=== PATIENT | female | born 1965 | race Caucasian/White ===

== ENCOUNTER 2016-11-21 06:40 | Day surgery (SDC) | payer OTHER ==
[~2016-11-21] VITALS: Ht 160 cm; Wt 81.0 kg
[2016-11-21] VITALS (11 sets, daily range): BP systolic 97–139; BP diastolic 50–72; PULSE 78–92; RESP 10–23; Ht 160 cm; Wt 81.0 kg
[2016-11-21] MEDS ORDERED: CEFAZOLIN 1 GM/50 ML (PMX) 50 ML IVPB ONE ×2 (08:30→10:19)
[2016-11-21] MEDS ORDERED: POLYMYXIN/BACITRACIN 1L IRRIG IRR ONE (08:30)
[2016-11-21] MEDS ORDERED: SOD CHLORIDE 0.9% 1,000 ML IV SCH (08:30)
[2016-11-21] MEDS ORDERED: MIDAZOLAM 1 MG/ML 2 ML INJ ONE (10:19)
[2016-11-21] MEDS ORDERED: FENTAnyl 50 MCG/ML VIAL ONE (10:19)
[2016-11-21] MEDS ORDERED: LIDOCAINE 2%/EPI 30 ML INJ ONE (10:19)
[2016-11-21] MEDS ORDERED: HEPARIN 1000 UNITS/ML 10 ML INJ ONE (10:19)
[2016-11-21] MEDS ORDERED: SOD CHLORIDE 0.9% 500 ML ONE (10:19)
--- NOTE | 2016-11-21 11:26 | RADRPT ---
PROCEDURE: FLUOROSCOPIC AND ULTRASONOGRAPHIC-GUIDED PLACEMENT OF LEFT CHEST PORT. CLINICAL INDICATION: History of right breast cancer. Venous access for chemotherapy. TECHNIQUE: INTRAPROCEDURE MEDICATIONS: PB antibiotic solution 40 cc applied topically. 1 gram Ancef intravenous ly, intra-op. IV Versed and Fentanyl per protocol. TECHNIQUE: Informed consent was obtained. The procedure, risks, benefits, complications and alternat brenda were explained to the patient. Risks including bleeding, infection, and pneumothorax were expl ained. The patient understood and was willing to proceed. A procedural pause was performed. The patient's name, date of , and procedure to be performed w ere verified. The central line was inserted with all elements of maximal sterile barrier technique. All of the fol lowing were used: head covering, facial mask, sterile gown, sterile gloves, a large sterile sheet, h and hygiene, and 2% chlorhexidine for cutaneous antisepsis. The left neck and anterior/superior chest wall were prepped and draped in usual sterile fashion. Limited sonography of the left neck was then performed. Noted is a patent left internal jugular vein . Following the local injection of 1% lidocaine, the left internal jugular vein was punctured under so nographic guidance with a 20-gauge needle through which a 0.018 inch floppy tip guidewire was advanc ed into the superior vena cava with fluoroscopic guidance. The tract was dilated to 5 Lao and t he wire was then replaced with a 0.035 in Glidewire. Serial dilatation was then performed and a 7 F rench peel away sheath was introduced. A site just inferior to the clavicle in the superior anterior left chest wall was localized. One per cent lidocaine was used as local anesthesia. A transverse 3 cm incision was made utilizing a 15 blad e scalpel. Utilizing blunt dissection a subcutaneous pocket was created inferior to the incision. Th e cavity was flushed with approximately 40 cc of PB antibiotic solution. The catheter was tunneled underneath the skin from the newly created pocket to the puncture site in the neck. The central line catheter was pulled through the tract. The catheter was then advanced thr ough the sheath until the tip was positioned in the right atrium. The peel-away sheath was removed. The catheter was flushed and clamped. The catheter was then connected to the 6.6 Lao Angiodynamics power port. The port was then placed into the pocket. Prior to closing the instrument and sponge count was verified and was correct. The subcutaneous tissue was closed with 3-0 Vicryl interrupted suture. The skin at the site of the pock et and in the neck was closed with 4-0 Vicryl suture in a running subcuticular technique. The port w as flushed with 2000 units of heparin in 2 cc utilizing a Lomeli needle. The needle was removed. A dr essing was applied. The patient tolerated procedure well. COMPARISON: None. FINDINGS: Ultrasound images were recorded and stored in the patient's medical record. Final radiographic images demonstrate the tip of the catheter in the upper right atrium. A total of 0.2 minutes of fluoroscopy time was used. The ultrasound images demonstrate the needle entering th e jugular vein. 5 images of the chest were obtained with image intensifier. IMPRESSION: 1. Successful ultrasonographic and fluoroscopic guided placement of left chest port. RPTAT: QQ .Del Lucio MD, MD Date Time Electronically viewed and signed by .Del Lucio MD, on 11/21/2016 11:26 .R/
--- NOTE | 2016-11-21 11:27 | RADRPT ---
PROCEDURE: Ultrasound guidance for placement of needle in left internal jugular vein. CLINICAL INDICATION: Venous access. TECHNIQUE: Prior to the procedure, informed consent was obtained. Risks including bleeding, infection, and pneu mothorax were explained to the patient. The patient understood and was willing to proceed. A procedu ral pause was performed. The patient's name, date of , and procedure to be performed were verif ied. The central line was inserted with all elements of maximal sterile barrier technique. All of th e following were used: head covering, facial mask, sterile gown, sterile gloves, a large sterile she et, hand hygiene, and 2% chlorhexidine for cutaneous antisepsis. The left neck and anterior/superi or chest wall was prepped and draped in usual sterile fashion. Limited sonography of the left neck was then performed. Noted is a patent left internal jugular vein . Ultrasound images were recorded and stored in the patient's medical record. Following the local injection of Xylocaine, the left internal jugular vein was punctured under sonog raphic guidance with a 20-gauge needle through which a 0.018 inch floppy tip guidewire was advanced into the superior vena cava. The patient tolerated the procedure well. The remainder of the proced ure was performed and dictated under separate cover. COMPARISON: None. FINDINGS: The ultrasound images demonstrate a patent left internal jugular vein. The subsequent images demons trate the needle entering the left internal jugular vein. IMPRESSION: 1. Ultrasound guidance for a needle placement in left internal jugular vein. RPTAT: QQ .Del Lucio MD, Date Time Electronically viewed and signed by .Del Lucio MD, MD on 11/21/2016 11:26 .R/
[2016-11-21] MEDS ORDERED: HYDROCODONE/APAP (5/325) TAB PO PRN (11:30)
== END 2016-11-21 14:18 | disposition home or self-care (01) ==
LOC: SDS 06:40 → RAD 06:40
PROVIDERS: ATTEND Internal Medicine Hematology & Oncology
DX: C50.911 Malignant neoplasm of unspecified site of right female breast (principal); I10 Essential (primary) hypertension; E66.9 Obesity, unspecified; Z68.31 Body mass index [BMI] 31.0-31.9, adult
CPT/HCPCS: 36561; 76942; C1788; J0690; J1644; J2250; J3010; J7040

== ENCOUNTER 2016-11-26 16:06 | Inpatient (IN) | payer OTHER, MEDICAID ==
[~2016-11-26] VITALS: Ht 160 cm; Wt 80.0 kg
[2016-11-26] MEDS ORDERED: HYDROmorphONE 1 MG/ML SYG IV STA ×2 (16:21→18:50)
[2016-11-26] MEDS ORDERED: SOD CHLORIDE 0.9% 1,000 ML IV STA (16:21)
[2016-11-26] MEDS ORDERED: ONDANSETRON 4 MG INJ IV STA ×2 (16:21→18:50)
--- NOTE | 2016-11-26 17:03 | ERA ---
ER Documentation Chief Complaint Date/Time DATE: 11/26/16 TIME: 16:37 Chief Complaint CODE GREEN: ABD/CP X 1 DAY THAT STARTED THIS MORNING HPI This is a 51-year-old female with a known history of right breast carcinoma who began chemotherapy November 15, 2016, 10 days prior to arrival. The patient had a left chest wall port placed for her chemotherapy 6 days prior to arrival. The patient 1 hour prior to arrival had eaten chicken and vegetables. She stated 10 minutes after she developed a sudden onset of severe abdominal cramping and nausea. She began to feel bilateral chest wall tenderness scribed is a dull achy sensation with pleuritic pain and no pressure in the left chest wall. She denied any radiation of the pain to the neck arm back or jaw. She states she has had no fevers or shaking or chills. There is no alleviating or exacerbating factors to the pain. As stated above she felt nauseous but denied any hemoptysis hematemesis or melanotic stools. She felt short of breath at rest and attempted to get out of the car in the parking lot but was unable to do so due to the severe shortness of breath and therefore a code green was called. She presented to the emergency department driven by her brother. She states that the abdominal cramping has persisted and there is no lower back pain. She also states that after the chemotherapy she had multiple episodes of loose watery stool which have resolved but several days ago developed frequency urgency and dysuria. She did not take any analgesic medication prior to arrival. No coughing choking or gagging episode that occurred while eating the chicken and vegetables. ROS All systems reviewed and are negative except as per history of present illness. Medications Home Meds No Active Prescriptions or Reported Meds Allergies Allergies: Coded Allergies: No Known Allergy (Unverified , 11/21/16) PMhx/Soc History of Surgery: Yes (endometriosis) Anesthesia Reaction: No Hx Neurological Disorder: No Hx Respiratory Disorders: No Hx Cardiac Disorders: Yes (htn) Hx Psychiatric Problems: No Hx Miscellaneous Medical Probl: Yes (brest ca) Hx Alcohol Use: No Hx Substance Use: No Hx Tobacco Use: No Smoking Status: Never smoker Physical Exam Vitals Vital Signs Date Time Temp Pulse Resp B/P Pulse Ox O2 Delivery O2 Flow Rate FiO2 11/26/16 21:46 97.8 80 12 128/79 99 Room Air 11/26/16 20:17 97.8 87 14 125/77 96 Room Air 11/26/16 18:30 97.8 85 19 131/79 98 Room Air 11/26/16 16:22 98.0 89 18 137/99 99 Physical Exam Constitutional:Well-developed. Well-nourished. She appeared to be in a significant amount of discomfort and tearful HEENT:Normocephalic. Atraumatic.Pupils were equal round reactive to light. Moist mucous membranes.No tonsillar exudates. Neck: No nuchal rigidity. No lymphadenopathy. No posterior cervical spine tenderness or step-offs. Respiratory: Not using accessory muscles of respiration.Lungs were clear to auscultation bilaterally. No rhonchi. No rales. No wheezing. Cardiovascular: Regular rate regular rhythm.No murmurs. No rubs were appreciated.S1, S2 normal. Distal pulses are palpable 2+ bilaterally. Chest wall port in place and no surrounding ecchymosis fluctuance or induration with bilateral chest wall tenderness. GI: Abdomen was soft. Tenderness in the bilateral left and right lower quadrant with no tenderness over McBurney's point. Psoas sign negative. Obturator sign negative peer Non Distended. No pulsatile abdominal masses or bruits. No rebound. No guarding. Bowel sounds were present and normal. Muscle skeletal: Full range of motion of both the upper and lower extremities bilaterally.Normal muscle tone.No assymetrical calf tenderness or swelling. Skin: No petechia, no purpura. No lesions on the palms or the soles of the feet. No maculopapular rash. NEURO: Patient was alert, awake, orientated x3.No facial droop. Gait observed and normal with no ataxia.Speech had regular rate and rhythm. No focal neurological deficits. Result Diagram: 11/26/16 1700 11/26/16 1700 Results 24 hrs Laboratory Tests Test 11/26/16 17:00 11/26/16 18:30 White Blood Count 12.210^3/ul Red Blood Count 4.5710^6/ul Hemoglobin 12.2g/dl Hematocrit 37.9% Mean Corpuscular Volume 82.9fl Mean Corpuscular Hemoglobin 26.7pg Mean Corpuscular Hemoglobin Concent 32.2g/dl Red Cell Distribution Width 12.3% Platelet Count 16543^3/UL Mean Platelet Volume 10.4fl Neutrophils % % Segmented Neutrophils % (Manual) 41% Band Neutrophils % (Manual) 12% Lymphocytes % % Lymphocytes % (Manual) 34% Reactive Lymphocytes % (Manual) 1% Monocytes % % Monocytes % (Manual) 12% Eosinophils % % Basophils % % Nucleated Red Blood Cells % 0.7/100WBC Neutrophils # 10^3/ul Neutrophils # (Manual) 5.210^3/ul Band Neutrophils # 1.410^3/ul Absolute Lymphocytes (Manual) 4.110^3/ul Lymphocytes # 4.110^3/ul Reactive Lymphocytes # 0.110^3/ul Monocytes # 1.510^3/ul Absolute Monocytes (Manual) 1.410^3/ul Eosinophils # 10^3/ul Basophils # 10^3/ul Nucleated Red Blood Cells # 10^3/ul Prothrombin Time 12.4Sec Prothrombin Time Ratio 1.0 INR International Normalized Ratio 0.92 Activated Partial Thromboplast Time 26.8Sec Sodium Level 142mmol/L Potassium Level 3.8mmol/L Chloride Level 106mmol/L Carbon Dioxide Level 24mmol/L Anion Gap 16 Blood Urea Nitrogen 8mg/dl Creatinine 0.80mg/dl Glucose Level 126mg/dl Calcium Level 9.5mg/dl Total Bilirubin 0.1mg/dl Direct Bilirubin 0.00mg/dl Indirect Bilirubin 0.1mg/dl Aspartate Amino Transf (AST/SGOT) 78IU/L Alanine Aminotransferase (ALT/SGPT) 82IU/L Alkaline Phosphatase 149IU/L Troponin I < 0.012ng/ml Total Protein 7.3g/dl Albumin 4.0g/dl Globulin 3.30g/dl Albumin/Globulin Ratio 1.21 Amylase Level 85U/L Lipase 475U/L Urine Color YELLOW Urine Clarity SLIGHTLY CLOUDY Urine pH 7.0 Urine Specific Linton 1.010 Urine Ketones NEGATIVEmg/dL Urine Nitrite NEGATIVEmg/dL Urine Bilirubin NEGATIVEmg/dL Urine Urobilinogen 1+mg/dL Urine Leukocyte Esterase 1+Johnnie/ul Urine Microscopic RBC 2/HPF Urine Microscopic WBC 40/HPF Urine Bacteria FEW/HPF Urine Mucus FEW/HPF Urine Hemoglobin NEGATIVEmg/dL Urine Glucose NEGATIVEmg/dL Urine Total Protein NEGATIVEmg/dl Current Medications Medications (Trade) Dose Ordered Sig/Ramon Route PRN Reason Start Time Stop Time Status Last Admin Dose Admin Sodium Chloride (NS) 1,000 ml @ 1,000 mls/hr Q1H STAT IV 11/26/16 16:21 11/26/16 17:20 DC 11/26/16 16:39 Hydromorphone HCl (Dilaudid) 1 mg ONCE STAT IV 11/26/16 16:21 11/26/16 16:27 DC 11/26/16 16:39 Ondansetron HCl (Zofran Inj) 4 mg ONCE STAT IV 11/26/16 16:21 11/26/16 16:27 DC 11/26/16 16:40 IV Flush 10 ml 10 ml STK-MED ONCE .ROUTE 11/26/16 18:44 11/26/16 18:45 DC 11/26/16 19:00 Sodium Chloride 100 ml @ ud STK-MED ONCE .ROUTE 11/26/16 18:44 11/26/16 18:45 DC 11/26/16 19:00 Iohexol (Omnipaque) 100 ml @ ud STK-MED ONCE .ROUTE 11/26/16 18:44 11/26/16 18:45 DC 11/26/16 19:00 Iohexol (Omnipaque 350mg/ ml) 50 ml STK-MED ONCE .ROUTE 11/26/16 18:44 11/26/16 18:45 DC 11/26/16 19:01 Hydromorphone HCl (Dilaudid) 1 mg ONCE STAT IV 11/26/16 18:50 11/26/16 18:54 DC 11/26/16 20:00 Ondansetron HCl 4 mg 4 mg ONCE STAT IV 11/26/16 18:50 11/26/16 18:54 DC 11/26/16 20:00 Ceftriaxone Sodium (Rocephin) 50 ml @ 100 mls/hr ONCE ONCE IVPB 11/26/16 21:30 11/26/16 21:59 Procedures/MDM This patient presented to the emergency department with abdominal pain, chest pain and shortness of breath on chemotherapy and was seen and evaluated by myself. My differential diagnosis included but was not limited to abdominal aortic aneurysm, appendicitis, pancreatitis, perforated peptic ulcer, perforated viscus, Boerhaaves syndrome or visceral pain such as diverticulitis , DKA, esophagitis, hepatitis or bowel obstruction. The patient was placed on a personnel monitor, continuous pulse oximetry, and IV access was established by nursing staff. The patient was given IV Dilaudid and Zofran for analgesia control. 12 Lead EKG tracing ordered and reviewed by myself showed: Normal sinus rhythm of 95 bpm and no arrhythmia. IA interval normal. QRS duration normal. No ST segment elevation No ST segment depression. No changes consistent with acute ischemia. He was also hypoxic with shortness of breath. My differential diagnosis included but was not limited to upper airway obstruction, CHF, pulmonary embolism, cardiac ischemia, pneumonia, pneumothorax, anemia, drug overdose, pulmonary edema, COPD or asthma. He was placed on low-flow supplemental oxygen via nasal cannula with improvement of her pulse ox. I did feel is necessary to obtain a CT scan of the chest in order to rule out pulmonary embolism. This was reviewed by the radiologist and indicated the following: Evidence of a pulmonary embolism. No evidence of small or large bowel obstruction. The patient did have urinary tract infection. Given that the patient is a medial compromise on chemotherapy I did feel the patient required admission for IV antibiotics. Urine cultures and blood cultures obtained and the patient was started on IV ceftriaxone. The patient's primary care physician is Dr. Florez and therefore is admitted to Dr. Reeves who is taking call for Dr. Florez. The patient's printed circuit boards contact printer oncologist is Dr. Avina. Patient at this time was stable to go to the surgical floor. She had no evidence of myocardial ischemia and I did feel the patient's chest discomfort was likely muscle skeletal in origin. Departure Diagnosis: Primary Impression: Pleuritic chest pain Additional Impressions: Urinary tract infection Qualified Code: N30.00 - Acute cystitis without hematuria Carcinoma of breast Qualified Code: C50.911 - Carcinoma of right female breast, unspecified estrogen receptor status, unspecified site of breast Condition: Serious GEORGIANA SALAZAR Nov 26, 2016 17:03
[2016-11-26 17:05] LABS: ABNORMAL IP MESSAGE 1; HEMATOCRIT 37.9 % (37.0-47.0); HEMOGLOBIN 12.2 g/dl (12.0-16.0); MEAN CORPUSCULAR HEMOGLOBIN 26.7 pg (29.0-33.0); MEAN CORPUSCULAR HGB CONC 32.2 g/dl (32.0-37.0); MEAN CORPUSCULAR VOLUME 82.9 fl (82.0-101.0); MEAN PLATELET VOLUME 10.4 fl (7.4-10.4); NUCLEATED RED BLOOD CELLS% 0.7 /100WBC (0.0-0.0); PLATELET COUNT 395 10^3/UL (140-415); RED BLOOD COUNT 4.57 10^6/ul (4.20-5.40); RED CELL DISTRIBUTION WIDTH 12.3 % (11.5-14.5); WHITE BLOOD COUNT 12.2 10^3/ul (4.8-10.8)
[2016-11-26 17:08] LABS: POSITIVE DIFF @See below
[2016-11-26 17:22] LABS: INR 0.92; PARTIAL THROMBOPLASTIN TIME 26.8 Sec (25.0-35.0); PROTIME 12.4 Sec (12.2-14.2)
[2016-11-26 17:23] LABS: ALANINE AMINOTRANSFERASE 82 IU/L (13-69); ALBUMIN/GLOBULIN RATIO 1.21; ALKALINE PHOSPHATASE 149 IU/L (42-121); AMYLASE 85 U/L (11-123); ANION GAP 16 (8-16); ASPARTATE AMINO TRANSFERASE 78 IU/L (15-46); BILIRUBIN,INDIRECT 0.1 mg/dl (0-1.1); BILIRUBIN,TOTAL 0.1 mg/dl (0.2-1.3); BLOOD UREA NITROGEN 8 mg/dl (7-20); CALCIUM 9.5 mg/dl (8.4-10.2); CARBON DIOXIDE 24 mmol/L (21-31); CHLORIDE 106 mmol/L (97-110); GLUCOSE 126 mg/dl (70-220); POTASSIUM 3.8 mmol/L (3.5-5.1); SODIUM 142 mmol/L (135-144); TOTAL PROTEIN 7.3 g/dl (6.1-8.1)
[2016-11-26 17:38] LABS: LYMPHOCYTES # 4.1 10^3/ul (0.8-2.9); MONOCYTE # 1.5 10^3/ul (0.3-0.9); MONOCYTES % (M) 12 % (0-11); REACTIVE LYMPHOCYTES% (M) 1 % (0-0); TROPONIN-I < 0.012 ng/ml (0.00-0.12)
[2016-11-26] MEDS ORDERED: SOD CHLORIDE 0.9% 100 ML ONE (18:44)
[2016-11-26] MEDS ORDERED: IOHEXOL 100 ML ONE (18:44)
[2016-11-26] MEDS ORDERED: IOHEXOL 350MG/ML 50 ML BTL ONE (18:44)
[2016-11-26 19:40] LABS: ADD UMIC YES; UR ASCORBIC ACID NEGATIVE (NEGATIVE); UR BACTERIA FEW /HPF (NONE SEEN); UR BILIRUBIN (Dip) NEGATIVE (NEGATIVE); UR BLOOD (Dip) NEGATIVE (NEGATIVE); UR CLARITY SLIGHTLY CLOUDY (CLEAR); UR COLOR YELLOW (YELLOW); UR GLUCOSE (Dip) NEGATIVE (NEGATIVE); UR KETONES (Dip) NEGATIVE (NEGATIVE); UR LEUKOCYTE ESTERASE (Dip) 1+ Leu/ul (NEGATIVE); UR MUCUS FEW /HPF (NONE SEEN); UR NITRITE (Dip) NEGATIVE (NEGATIVE); UR RBC 2 /HPF (0-5); UR TOTAL PROTEIN (Dip) NEGATIVE (NEGATIVE); UR UROBILINOGEN (Dip) 1+ mg/dL (NEGATIVE)
--- NOTE | 2016-11-26 20:06 | RADRPT ---
PROCEDURE: CTA Chest and pulmonary angiogram. CT abdomen and pelvis with contrast. CLINICAL INDICATION: Shortness of breath and abdominal pain. TECHNIQUE: CT scan of the chest and CT pulmonary angiogram and CT abdomen and pelvis were performe d on a multidetector high-resolution CT scanner. High-resolution thin slice coronal and sagittal im aging was obtained from the axial source images. 3-D volumetric rendered post processing of the pul monary arteries was performed as well. The patient was examined following the uncomplicated intrave nous administration of 125 cc of Omnipaque-350. The images were reviewed on a PACS workstation. The total exam CTDI equals 21.12, 42.25, 18.23, and 13.93 and the total exam DLP equals 1557.01 mGy-cm. One or more of the following dose reduction techniques were used: Automated exposure control. Adjustment of the mA and/or kV according to patient size. Use of iterative reconstruction technique. COMPARISON: No prior studies are available for comparison. FINDINGS: CT chest: The lungs are remarkable for patchy atelectasis/pleuroparenchymal scarring in the lung bases. No foc al opacification, effusion, pneumothorax, edema, or nodules are seen. The central tracheobronchial tree is clear. The mediastinum is unremarkable without evidence for mass or lymphadenopathy. There is a left IJ audra st port with tip in the right atrium. The vascular structures of the mediastinum are normal in cour se and caliber. The heart size is normal without pericardial thickening or effusion. The axillary, subpectoral, and supraclavicular regions are unremarkable. Imaging obtained through the upper abdomen is equally unremarkable. The adrenal glands are symmetri roverto normal. The surrounding chest wall is unremarkable. The osseous structures are remarkable fo r degenerative spondylosis of the spine. CT pulmonary angiogram: No thrombus, clot, filling defect, or pulmonary web is identified. The pulmonary arteries are joy l in caliber and morphology. No filling defect is present to suggest pulmonary embolism. There is no evidence for pulmonary arterial hypertension. CT abdomen and pelvis: The liver is normal in size and density. There is no suspicious focal liver mass. The spleen is nor mal in size. The gallbladder is unremarkable. Both kidneys enhance symmetrically. There is no urolit hiasis. There is no renal mass. The adrenal glands are unremarkable. The pancreas is unremarkable. T he stomach, and bowel appear unremarkable. The patient is status post hysterectomy. There is no retr operitoneal or pelvic lymphadenopathy. The abdominal aorta is normal in caliber with scattered aorto iliac atherosclerosis. The visualized osseous structures are unremarkable. There is no lytic or maría tic osseous lesions. IMPRESSION: CT pulmonary angio: 1. No evidence for major pulmonary embolism. The evaluation of the lower lobe pulmonary artery bran ches is very limited due to breathing artifacts. 2. Patchy bibasilar atelectasis/linear scarring. Abdomen and pelvis: 1. No mass, lymphadenopathy or acute infiltrates. 2. Scattered aortoiliac atherosclerosis. RPTAT: HHO .Zay Pierce MD, MD Date Time Electronically viewed and signed by .Zay Pierce MD, on 11/26/2016 20:05 .O/
[2016-11-26] MEDS ORDERED: CEFTRIAXONE 1 GM/50 ML (PMX) 50 ML IVPB ONE (21:30)
[2016-11-26 21:46] VITALS: TEMP 97.8
[2016-11-26 22:05] VITALS: BP 123/59; PULSE 89; RESP 18
[2016-11-26 22:10] VITALS: Ht 160 cm; Wt 80.0 kg
[2016-11-26] MEDS ORDERED: NACL 0.9% 3 ML SYG IV SCH (22:30)
[2016-11-26] MEDS ORDERED: ONDANSETRON 4 MG INJ IV PRN (22:30)
[2016-11-26] MEDS ORDERED: HYDROmorphONE 0.5 MG/0.5 ML SYG IV PRN (22:30)
[2016-11-26] MEDS ORDERED: CEFTRIAXONE 1 GM/50 ML (PMX) 50 ML IVPB SCH (22:30)
[2016-11-26] MEDS: SOD CHLORIDE 0.9% 1,000 ML IV SCH (23:02)
[2016-11-27 05:55] LABS: ABNORMAL IP MESSAGE 1; HEMATOCRIT 31.9 % (37.0-47.0); HEMOGLOBIN 10.2 g/dl (12.0-16.0); MEAN CORPUSCULAR HEMOGLOBIN 27.1 pg (29.0-33.0); MEAN CORPUSCULAR VOLUME 84.8 fl (82.0-101.0); MEAN PLATELET VOLUME 10.2 fl (7.4-10.4); NUCLEATED RED BLOOD CELLS% 0.3 /100WBC (0.0-0.0); PLATELET COUNT 319 10^3/UL (140-415); RED BLOOD COUNT 3.76 10^6/ul (4.20-5.40); RED CELL DISTRIBUTION WIDTH 12.5 % (11.5-14.5); WHITE BLOOD COUNT 10.4 10^3/ul (4.8-10.8)
[2016-11-27 06:12] LABS: POSITIVE DIFF @See below
[2016-11-27 06:36] LABS: POTASSIUM 3.6 mmol/L (3.5-5.1)
[2016-11-27 06:37] LABS: ALBUMIN 3.1 g/dl (3.3-4.9); ALBUMIN/GLOBULIN RATIO 0.88; BILIRUBIN,INDIRECT 0.1 mg/dl (0-1.1); BILIRUBIN,TOTAL 0.1 mg/dl (0.2-1.3); CALCIUM 8.7 mg/dl (8.4-10.2); CREATININE 0.87 mg/dl (0.44-1.00); TOTAL PROTEIN 6.6 g/dl (6.1-8.1)
[2016-11-27 07:28] VITALS: BP 132/70; RESP 19
[2016-11-27 07:55] LABS: ANISOCYTOSIS 2+ (0-0); GIANT THROMBO% (M) 1 % (0-0); MICROCYTOSIS 2+ (0-0); MONOCYTES % (M) 14 % (0-11); MYELOCYTES % (M) 5 % (0-0); PLATELET ESTIMATE NORMAL; POLYCHROMASIA 3+ (0-0)
[2016-11-27] MEDS: SOD CHLORIDE 0.9% 1,000 ML IV SCH ×2 (08:16→15:19)
[2016-11-27] MEDS: ENOXAPARIN 30 MG/0.3 ML SYG SC SCH (08:24)
[2016-11-27] MEDS ORDERED: FAMOTIDINE 20 MG INJ IV SCH (09:00)
--- NOTE | 2016-11-27 14:01 | HP ---
DATE OF ADMISSION: 11/26/2016 CHIEF COMPLAINT: Abdominal and chest pain and generalized weakness. HISTORY OF PRESENT ILLNESS: The patient is a 51-year-old female with past medical history positive for hypertension and right breast carcinoma. Patient is followed with Dr. Andujar in oncology co nsultation and patient started chemotherapy first out of 6 cycles on 11/15/2016. However, patient d eveloped onset of severe abdominal pain and nausea as well as chest pain. The patient was brought t o the emergency room by her brother. On evaluation in the emergency room, the patient underwent a C TA which was negative for any evidence of pulmonary embolism. The patient's urinalysis was positive for urinary tract infection and after urine and blood culture collected, the patient was started on Rocephin and admitted for further evaluation and management. During the examination, patient denie s any chest pain, denies any abdominal pain. However, patient stated that she has diarrhea right af ter chemotherapy. Denies any diarrhea recently. The patient will be admitted for further evaluatio n and management. Also, the patient's troponin was negative in the emergency room. However, patien t has transaminitis and elevated lipase. The patient will be admitted to medical/surgical floor for further evaluation and management. PAST MEDICAL HISTORY: Per HPI. PAST SURGICAL HISTORY: Status post hysterectomy 4 years ago, status post left chest Port-A-Cath hadley cement and status post right breast biopsies x2. FAMILY HISTORY: Negative for any history of ovarian or breast cancer. SOCIAL HISTORY: The patient lives at home. Patient denies any tobacco use, denies any alcohol use, denies any illicit drug use. ALLERGIES: NO KNOWN ALLERGIES. HOME MEDICATIONS: No active prescriptions. REVIEW OF SYSTEMS: A 12-point review of systems is negative unless mentioned in the HPI. PHYSICAL ASSESSMENT: GENERAL: Well-developed, obese female in no acute distress. VITAL SIGNS: Temperature is 98.0, pulse is 73, respiratory rate 19, blood pressure is 132/70, oxyge n saturation 98% on room air. HEENT: Head is atraumatic, normocephalic. Pupils equal, round, reactive to light and accommodation . Oral mucosa is pink and moist. NECK: Supple, no cervical lymphadenopathy, no thyromegaly. CHEST: Lungs clear bilaterally. There is no rhonchi, wheezes, rales noted. CARDIOVASCULAR: Normal S1, S2. No murmurs, gallops, clicks, rubs noted. The patient has a left ch est Perm-A-Cath with intact surgical incision. Abdomen is round, soft, nondistended, nontender. Ihsan wel sounds present. There is no guarding, no rebound tenderness. EXTREMITIES: No edema, clubbing, cyanosis. Pulses equal bilaterally 2+. SKIN: There is no rash, petechiae noted. NEUROLOGIC: Patient is awake, alert and oriented x4. No focal deficits noted. Motor strength 5/5 in all extremities. LABORATORY DATA: On admission, CBC: White blood cells 12.2, hemoglobin 12.2, hematocrit 37.9, plat elets 395. Chemistry: Sodium is 142, potassium 3.8, chloride 106, carbon dioxide 24, anion gap 16, BUN is 8, creatinine 0.8, glucose 126, AST 78, ALT is 82, alkaline phosphatase 149. Troponin less than 0.012. Amylase is 85, lipase of 475. Urinalysis is positive for leukocyte esterase and dysuri a. ASSESSMENT AND PLAN: 1. Urinary tract infection. Continue Rocephin. Follow up on urine culture. Possible sepsis with leukocytosis and shortness of breath. 2. Pulmonary embolism ruled out. 3. Right breast carcinoma, status post chemotherapy on 11/15/2016, left chest Port-A-Cath. 4. Transaminitis. 5. I am going to continue Zofran p.r.n. for nausea and Dilaudid p.r.n. for pain. Advance diet as p atient tolerates. Continue Lovenox for deep venous thrombosis prophylaxis and Pepcid for peptic ulc er disease prophylaxis. Further recommendations based on clinical course. Plan of care discussed with Dr. Diggs. Dictated By: BENEDICT TSAI [employer] for MARCELINO DIGGS MD SR/NTS Conf#: [id number] DID#: [id number]
[2016-11-27 14:41] LABS: HAAIG REFLEX REFLEX FILED
[2016-11-27 14:54] VITALS: BP 121/61; RESP 19
--- NOTE | 2016-11-27 16:02 | CONS ---
DATE OF ADMISSION: 11/26/2016 DATE OF CONSULTATION: 11/27/2016 TYPE OF CONSULTATION: Gastroenterology. Dear Dr. Degroot and Dr. Diggs: Thank you for asking me to see Ms. Pelayo in GI consultation. HISTORY OF PRESENT ILLNESS: The patient, as you know, is a 51-year-old female who was diag nosed to have breast cancer recently and she received her first chemotherapy the beginning of . Now, she has developed epigastric pain after she ate lunch yesterday and because of that she cam e to the emergency room. She had a very minimal shortness of breath and she had a pulmonary angiogr am done which apparently was unremarkable. She has an abnormal liver functions, hence the GI consul tation has been requested. She does not drink alcohol. She does not smoke. MEDICATIONS: Prior to the admission essentially includes none. In the hospital, she is on 1. Ceftriaxone. 2. Pepcid. 3. Lovenox. 4. Zofran. 5. Dilaudid. No prior history of liver disease. IMAGING STUDIES: Shows evidence of having a CAT scan of the chest and abdomen which revealed no pul monary embolus, but no evidence of abnormality in the liver, except scattered aortic atherosclerosis . No history of contact with anybody having hepatitis. PAST MEDICAL HISTORY: Hysterectomy. PHYSICAL EXAMINATION: GENERAL: The patient is a 51-year-old female who at this time is alert, mildly obese. VITAL SIGNS: She is afebrile. Blood pressure is 132/70, pulse is 73, temperature 98.0. No jaundic e. CARDIOVASCULAR: Normal heart sounds. RESPIRATORY: Normal breath sounds. ABDOMEN: Showed evidence of a soft abdomen with no palpable masses, no tenderness, no distention. The electrocardiogram shows sinus rhythm. Cannot rule out anterior infarction. LABORATORY WORKUP: Yesterday AST 78, today is 53. Yesterday, ALT is 82, today is 90, alkaline phos phatase is 149 and today 132. The bilirubin 0.1. The WBC count is 10,400 which came down from 12,2 00. CLINICAL IMPRESSION: The patient presenting with history of epigastric pain, abnormal liver functio ns, acute cholecystitis is a possibility, but no evidence of gallstones noted on the CT of the abdom en, no evidence of any acute process noted on the CT of the abdomen. The imaging obtained through the upper abdomen reported as unremarkable. Liver is unremarkable. Ga llbladder is unremarkable. CLINICAL IMPRESSION: It is possible we may be dealing with the fact that patient may have passed ga llstones. No evidence of pancreatitis. I doubt if we are dealing with any obstructive process aleyda g on in the hepatobiliary pancreatic system from the abnormal liver function standpoint. However, m etastatic disease in the cannot be excluded, although it is not noticed on the CT scan. PLAN: 1. Recommend magnetic resonance cholangiopancreatography and if there is any indication for endosco pic retrograde cholangiopancreatography that will be considered. 2. Also, recommend hepatitis panel. Once again, doctor, thank you for this consultation. Dictated By: KEITH DUFF MD NC/NTS Conf#: [id number] DID#: [id number] CC: MARCELINO DIGGS MD; SASHA DEGROOT MD;*EndCC*
[2016-11-27 16:11] LABS: HEPATITIS B CORE ANTIBODY NEGATIVE (NEGATIVE)
[2016-11-27 19:24] VITALS: BP 132/64; RESP 16
[2016-11-27] MEDS: FAMOTIDINE 20 MG TAB PO SCH (20:41)
[2016-11-27] MEDS: CEFTRIAXONE 1 GM/50 ML (PMX) 50 ML IVPB SCH (20:42)
--- NOTE | 2016-11-27 20:42 | RADRPT ---
PROCEDURE: MRI abdomen without contrast CLINICAL INDICATION: Abdominal pain TECHNIQUE: An MRI of the abdomen was performed utilizing a high field MRI scanner with the following pulsed seq uences: Axial T2 fast spin-echo, axial T2 non-fat saturation fast spin-echo, axial T1 gradient echo in-phase and opposed-phase. Noncontrast fat sat T1-weighted images were also obtained. Coronal T2 and fat-saturated T2-weighted images were also obtained. Diffusion-weighted images and ADC maps were obtained. COMPARISON: Not FINDINGS: Lack of IV contrast limits evaluation for enhancing masses. There is uniform signal intensity of the liver with no evidence of focal lesion to suggest a mass. F low void is present within the portal vein. The gallbladder is unremarkable without evidence of sto aida, or surrounding inflammation. There is no intrahepatic or extrahepatic biliary ductal dilatation . There is a normal appearance the spleen without enlargement. Adrenal glands are unremarkable without mass or signal abnormality. The kidneys are symmetric without hydronephrosis. The pancreas is unrem arkable without inflammation. There is a mildly fecal filled colon to There is no evidence of bowel obstruction or mesenteric infl ammatory changes. There is no free fluid or lymphadenopathy. Aortic atherosclerotic plaque is partia lly visualized. Degenerative changes seen in the lumbar spine. IMPRESSION: No evidence of mass or inflammation within the abdomen. Mildly fecal filled colon. Atherosclerotic disease is visualized. RPTAT: AA .Ishmael Denson MD, MD Date Time Electronically viewed and signed by .Ishmael Denson MD, MD on 11/27/2016 20:41 .J/
[2016-11-28] MEDS: SOD CHLORIDE 0.9% 1,000 ML IV SCH ×3 (01:13→21:45)
[2016-11-28] MEDS: LOSARTAN 25 MG TAB PO SCH ×2 (02:00→07:57)
[2016-11-28] MEDS: AMLODIPINE 5 MG TAB PO SCH ×2 (02:00→07:58)
[2016-11-28 02:10] VITALS: BP 161/85; RESP 16
[2016-11-28] MEDS: ACETAMINOPHEN 325 MG TAB PO PRN ×2 (03:12→16:42)
[2016-11-28 06:42] VITALS: BP 120/74; PULSE 74; RESP 18
[2016-11-28 07:00] VITALS: BP 154/79; RESP 18
[2016-11-28 08:36] LABS: ABNORMAL IP MESSAGE 1; HEMATOCRIT 32.7 % (37.0-47.0); HEMOGLOBIN 10.5 g/dl (12.0-16.0); MEAN CORPUSCULAR HEMOGLOBIN 27.1 pg (29.0-33.0); MEAN CORPUSCULAR HGB CONC 32.1 g/dl (32.0-37.0); MEAN CORPUSCULAR VOLUME 84.3 fl (82.0-101.0); NUCLEATED RED BLOOD CELLS% 0.3 /100WBC (0.0-0.0); PLATELET COUNT 307 10^3/UL (140-415); RED BLOOD COUNT 3.88 10^6/ul (4.20-5.40); RED CELL DISTRIBUTION WIDTH 12.4 % (11.5-14.5); WHITE BLOOD COUNT 9.5 10^3/ul (4.8-10.8)
[2016-11-28] MEDS: FAMOTIDINE 20 MG TAB PO SCH ×2 (08:43→21:05)
[2016-11-28] MEDS: ENOXAPARIN 30 MG/0.3 ML SYG SC SCH (08:46)
[2016-11-28 08:52] LABS: POSITIVE DIFF @See below
[2016-11-28 08:59] LABS: ALBUMIN 3.5 g/dl (3.3-4.9); ALBUMIN/GLOBULIN RATIO 1.09; CALCIUM 8.5 mg/dl (8.4-10.2); CREATININE 0.77 mg/dl (0.44-1.00); POTASSIUM 3.6 mmol/L (3.5-5.1); TOTAL PROTEIN 6.7 g/dl (6.1-8.1)
[2016-11-28 10:12] LABS: ANISOCYTOSIS 1+ (0-0); MICROCYTOSIS 1+ (0-0); MONOCYTES % (M) 8 % (0-11); PLATELET ESTIMATE NORMAL; REACTIVE LYMPHOCYTES% (M) 2 % (0-0)
--- NOTE | 2016-11-28 13:25 | PN ---
Date/Time of Note Date/Time of Note DATE: 11/28/16 TIME: 13:24 Assessment/Plan VTE Prophylaxis VTE Prophylaxis Intervention: SCD's Lines/Catheters IV [facility] Assessment/Plan Chief Complaint/Hosp Course Patient denies abdominal pain denies shortness of breath. Problems: Assessment/Plan - Urinary tract infection. Continue Rocephin. Follow up on urine culture. - Possible sepsis with leukocytosis and shortness of breath. - Pulmonary embolism ruled out. - Right breast carcinoma, status post chemotherapy on 11/15/2016, left chest Port-A-Cath. - Transaminitis. Dr. Rivera is following in gastroenterology consultation Further recommendations based on clinical course. Plan of care discussed with Dr. Florez. Exam/Review of Systems Vital Signs Vitals Vital Signs Date Time Temp Pulse Resp B/P Pulse Ox O2 Delivery O2 Flow Rate FiO2 11/28/16 07:00 98.6 71 18 154/79 96 11/28/16 06:42 Room Air Intake and Output 11/27/16 11/27/16 11/28/16 15:00 23:00 07:00 Intake Total 1460 ml 1400 ml Balance 1460 ml 1400 ml Exam Constitutional: alert Head: normocephalic Neck: supple Respiratory: normal air movement Cardiovascular: nl pulses Gastrointestinal: non-tender, soft Extremities: normal pulses Results Result Diagram: 11/28/16 0808 11/28/16 0808 Results 24 hrs Laboratory Tests Test 11/27/16 14:27 11/28/16 08:08 Hepatitis B Surface Antigen NEGATIVE Hepatitis B Core Total Antibody NEGATIVE Hepatitis C Antibody NEGATIVE White Blood Count 9.5 Red Blood Count 3.88 L Hemoglobin 10.5 L Hematocrit 32.7 L Mean Corpuscular Volume 84.3 Mean Corpuscular Hemoglobin 27.1 L Mean Corpuscular Hemoglobin Concent 32.1 Red Cell Distribution Width 12.4 Platelet Count 307 Mean Platelet Volume 10.0 Neutrophils % Segmented Neutrophils % (Manual) 59 Band Neutrophils % (Manual) 16 H Lymphocytes % Lymphocytes % (Manual) 15 Reactive Lymphocytes % (Manual) 2 H Monocytes % Monocytes % (Manual) 8 Eosinophils % Basophils % Nucleated Red Blood Cells % 0.3 H Neutrophils # Neutrophils # (Manual) 5.7 Band Neutrophils # 1.5 H Absolute Lymphocytes (Manual) 1.4 Lymphocytes # Reactive Lymphocytes # 0.1 H Monocytes # Absolute Monocytes (Manual) 0.7 Eosinophils # Basophils # Nucleated Red Blood Cells # Platelet Estimate NORMAL Anisocytosis 1+ Microcytosis 1+ Sodium Level 142 Potassium Level 3.6 Chloride Level 108 Carbon Dioxide Level 25 Anion Gap 13 Blood Urea Nitrogen 8 Creatinine 0.77 Glucose Level 99 Calcium Level 8.5 Total Bilirubin 0.0 L Direct Bilirubin 0.00 Indirect Bilirubin 0.0 Aspartate Amino Transf (AST/SGOT) 30 Alanine Aminotransferase (ALT/SGPT) 71 H Alkaline Phosphatase 123 H Total Protein 6.7 Albumin 3.5 Globulin 3.20 Albumin/Globulin Ratio 1.09 Medications Medications Current Medications Sodium Chloride (NS) 1,000 ml @ 100 mls/hr Q10H IV Last administered on 15:19; Admin Dose 100 MLS/HR; Start 11/26/16 at 22:16 Ondansetron HCl (Zofran Inj) 4 mg Q6H PRN IV NAUSEA AND/OR VOMITING; Start at 22:30 Acetaminophen (Tylenol Tab) 650 mg Q6H PRN PO PAIN LEVEL 1-3 OR FEVER Last administered on 11/28/16 03:12; Admin Dose 650 MG; Start 11/26/16 at 22:30 Hydromorphone HCl (Dilaudid) 0.5 mg Q4H PRN IV SEVERE PAIN LEVEL 7-10; Start 11/26/16 at 22:30 Enoxaparin Sodium 30 mg 30 mg DAILY SC ; Start 11/27/16 at 09:00 Ceftriaxone Sodium (Rocephin) 50 ml @ 100 mls/hr Q24H IVPB Last administered on 11/27/16 20:42; Admin Dose 100 MLS/HR; Start 11/27/16 at 21:00 Famotidine (Pepcid) 20 mg Q12 PO Last administered on 11/28/16 08:43; Admin Dose 20 MG; Start 11/27/16 at 21:00 Losartan Potassium (Cozaar) 25 mg DAILY PO Last administered on 11/28/16 02: 00; Admin Dose 25 MG; Start 11/28/16 at 02:00 Amlodipine Besylate (Norvasc) 5 mg DAILY PO Last administered on 11/28/16 02: 00; Admin Dose 5 MG; Start 11/28/16 at 02:00 BENEDICT TSAI Nov 28, 2016 13:25
[2016-11-28 14:00] VITALS: BP 113/69; RESP 18
--- NOTE | 2016-11-28 14:56 | CONS ---
DATE OF ADMISSION: 11/26/2016 DATE OF CONSULTATION: 11/28/2016 CHIEF COMPLAINT: Abdominal pain is much better and the MRI shows evidence of no gallstones or any o ther biliary tract disease. She has anemia with hemoglobin dropping to 10 grams. PHYSICAL EXAMINATION: Unremarkable. IMPRESSION: Rule out peptic ulcer disease because of the abdominal pain and because of the anemia. She has abnormal liver functions and could be related to the fatty liver. PLAN: At this time, recommend to proceed with upper endoscopy. Once again, doctor, thank you for this consultation. Dictated By: KEITH SOLOMON/NTS Conf#: [id number] DID#: [id number]
[2016-11-28 19:25] VITALS: BP 144/82; RESP 18
--- NOTE | 2016-11-28 20:46 | CONS ---
Date/Time of Note Date/Time of Note DATE: 11/28/16 TIME: 20:46 Assessment/Plan Assessment/Plan Chief Complaint/Hosp Course - Right breast carcinoma, status post chemotherapy on 11/15/2016, left chest Port-A-Cath. INCOMPLETE RECORD WILL OBTAIN RECORD AND WILL D/W DR LYNN - Urinary tract infection. Continue Rocephin. - Possible sepsis with leukocytosis and shortness of breath, resolved. - Pulmonary embolism ruled out. - Transaminitis, resolving. Dr. Rivera is following in gastroenterology consultation - Gastritis per EGD, continue Protonix. Problems: Consultation Date/Type/Reason Admit Date/Time Nov 26, 2016 at 21:04 Date of Consultation: Nov 28, 2016 Type of Consultation: HEMEON Reason for Consultation BREAST CANCER Referring Provider: MARCELINO DIGGS MD Hx of Present Illness The patient is a 51-year-old female with past medical history positive for hypertension and right breast carcinoma. Patient is followed with Dr. Andujar in oncology consultation and patient started chemotherapy first out of 6 cycles on 11/15/2016. However, patient developed onset of severe abdominal pain and nausea as well as chest pain. The patient was brought to the emergency room by her brother. On evaluation in the emergency room, the patient underwent a CTA which was negative for any evidence of pulmonary embolism. The patient's urinalysis was positive for urinary tract infection and after urine and blood culture collected, the patient was started on Rocephin and admitted for further evaluation and management. During the examination, patient denies any chest pain, denies any abdominal pain. However , patient stated that she has diarrhea right after chemotherapy. Denies any diarrhea recently. The patient will be admitted for further evaluation and management. Also, the patient's troponin was negative in the emergency room. However, patient has transaminitis and elevated lipase. The patient will be admitted to medical/surgical floor for further evaluation and management. [facility] PAST MEDICAL HISTORY: Per HPI. PAST SURGICAL HISTORY: Status post hysterectomy 4 years ago, status post left chest Port-A-Cath placement and status post right breast biopsies x2. FAMILY HISTORY: Negative for any history of ovarian or breast cancer. SOCIAL HISTORY: The patient lives at home. Patient denies any tobacco use, denies any alcohol use, denies any illicit drug use. ALLERGIES: NO KNOWN ALLERGIES. HOME MEDICATIONS: No active prescriptions. REVIEW OF SYSTEMS: A 12-point review of systems is negative unless mentioned in the HPI. Social History Smoking Status: Never smoker Exam/Review of Systems Vital Signs Vitals Vital Signs Date Time Temp Pulse Resp B/P Pulse Ox O2 Delivery O2 Flow Rate FiO2 11/28/16 19:25 98.7 71 18 144/82 98 11/28/16 06:42 Room Air Intake and Output 11/27/16 11/27/16 11/28/16 15:00 23:00 07:00 Intake Total 1460 ml 1400 ml Balance 1460 ml 1400 ml Exam Constitutional: alert Head: normocephalic Neck: supple Respiratory: normal air movement Cardiovascular: nl pulses Gastrointestinal: non-tender, soft Extremities: normal pulses Results Result Diagram: 11/28/16 0808 11/28/16 0808 Results 24 hrs Laboratory Tests Test 11/28/16 08:08 White Blood Count 9.5 Red Blood Count 3.88 L Hemoglobin 10.5 L Hematocrit 32.7 L Mean Corpuscular Volume 84.3 Mean Corpuscular Hemoglobin 27.1 L Mean Corpuscular Hemoglobin Concent 32.1 Red Cell Distribution Width 12.4 Platelet Count 307 Mean Platelet Volume 10.0 Neutrophils % Segmented Neutrophils % (Manual) 59 Band Neutrophils % (Manual) 16 H Lymphocytes % Lymphocytes % (Manual) 15 Reactive Lymphocytes % (Manual) 2 H Monocytes % Monocytes % (Manual) 8 Eosinophils % Basophils % Nucleated Red Blood Cells % 0.3 H Neutrophils # Neutrophils # (Manual) 5.7 Band Neutrophils # 1.5 H Absolute Lymphocytes (Manual) 1.4 Lymphocytes # Reactive Lymphocytes # 0.1 H Monocytes # Absolute Monocytes (Manual) 0.7 Eosinophils # Basophils # Nucleated Red Blood Cells # Platelet Estimate NORMAL Anisocytosis 1+ Microcytosis 1+ Sodium Level 142 Potassium Level 3.6 Chloride Level 108 Carbon Dioxide Level 25 Anion Gap 13 Blood Urea Nitrogen 8 Creatinine 0.77 Glucose Level 99 Calcium Level 8.5 Total Bilirubin 0.0 L Direct Bilirubin 0.00 Indirect Bilirubin 0.0 Aspartate Amino Transf (AST/SGOT) 30 Alanine Aminotransferase (ALT/SGPT) 71 H Alkaline Phosphatase 123 H Total Protein 6.7 Albumin 3.5 Globulin 3.20 Albumin/Globulin Ratio 1.09 Medications Medications Current Medications Sodium Chloride (NS) 1,000 ml @ 100 mls/hr Q10H IV Last administered on 15:19; Admin Dose 100 MLS/HR; Start 11/26/16 at 22:16 Ondansetron HCl (Zofran Inj) 4 mg Q6H PRN IV NAUSEA AND/OR VOMITING; Start at 22:30 Acetaminophen (Tylenol Tab) 650 mg Q6H PRN PO PAIN LEVEL 1-3 OR FEVER Last administered on 11/28/16 16:42; Admin Dose 650 MG; Start 11/26/16 at 22:30 Hydromorphone HCl (Dilaudid) 0.5 mg Q4H PRN IV SEVERE PAIN LEVEL 7-10; Start 11/26/16 at 22:30 Enoxaparin Sodium 30 mg 30 mg DAILY SC ; Start 11/27/16 at 09:00 Ceftriaxone Sodium (Rocephin) 50 ml @ 100 mls/hr Q24H IVPB Last administered on 11/27/16 20:42; Admin Dose 100 MLS/HR; Start 11/27/16 at 21:00 Famotidine (Pepcid) 20 mg Q12 PO Last administered on 11/28/16 08:43; Admin Dose 20 MG; Start 11/27/16 at 21:00 Losartan Potassium (Cozaar) 25 mg DAILY PO Last administered on 11/28/16 02: 00; Admin Dose 25 MG; Start 11/28/16 at 02:00 Amlodipine Besylate (Norvasc) 5 mg DAILY PO Last administered on 11/28/16 02: 00; Admin Dose 5 MG; Start 11/28/16 at 02:00 ASHA BARAJAS MD Nov 28, 2016 20:46
[2016-11-28] MEDS: CEFTRIAXONE 1 GM/50 ML (PMX) 50 ML IVPB SCH (21:05)
[2016-11-29] VITALS (12 sets, daily range): BP systolic 112–153; BP diastolic 8–80; PULSE 61–91; RESP 14–20
[2016-11-29] MEDS: SOD CHLORIDE 0.9% 1,000 ML IV SCH ×3 (00:06→20:16)
[2016-11-29] MEDS: ENOXAPARIN 30 MG/0.3 ML SYG SC SCH (09:00)
[2016-11-29] MEDS: AMLODIPINE 5 MG TAB PO SCH (09:00)
[2016-11-29] MEDS: LOSARTAN 25 MG TAB PO SCH (09:00)
[2016-11-29] MEDS: FAMOTIDINE 20 MG TAB PO SCH (09:00)
[2016-11-29] MEDS ORDERED: LIDOCAINE 4% SOLUTION 50 ML BTL ONE (10:34)
--- NOTE | 2016-11-29 10:55 | OPPN ---
Date/Time of Note Date/Time of Note DATE: 11/29/16 TIME: 10:52 Proc Note GI Procedure Date 11/29/16 Indication: diagnostic Pre-procedure Diagnosis abd pain r/o pud Post-procedure Diagnosis diffuse gastritis gerd duod folds dedcreased antral polyp Procedure Performed: Endoscopy Surgeon see signature line Acute Care Physical Therapist none Anesthesia Type: moderate sedation Tourniquet Time none EBL none Transfusion required none Biopsy 1: gastric duodenal bx Grafts/Implants none Tubes/Drains none Complication(s) none Disposition: PACU Procedure Description egd gerd mild gastritis diffuse decreased duod folds KEITH DUFF MD Nov 29, 2016 10:55
[2016-11-29] MEDS ORDERED: MIDAZOLAM 1 MG/ML 2 ML INJ ONE ×2 (11:38)
[2016-11-29] MEDS ORDERED: FENTAnyl 50 MCG/ML VIAL ONE (11:39)
[2016-11-29 11:41] LABS: ABNORMAL IP MESSAGE 1; HEMATOCRIT 32.9 % (37.0-47.0); HEMOGLOBIN 10.7 g/dl (12.0-16.0); MEAN CORPUSCULAR HEMOGLOBIN 27.2 pg (29.0-33.0); MEAN CORPUSCULAR HGB CONC 32.5 g/dl (32.0-37.0); MEAN CORPUSCULAR VOLUME 83.5 fl (82.0-101.0); MEAN PLATELET VOLUME 9.9 fl (7.4-10.4); PLATELET COUNT 298 10^3/UL (140-415); RED BLOOD COUNT 3.94 10^6/ul (4.20-5.40); RED CELL DISTRIBUTION WIDTH 12.1 % (11.5-14.5); WHITE BLOOD COUNT 6.6 10^3/ul (4.8-10.8)
[2016-11-29 11:47] LABS: POSITIVE DIFF @See below
[2016-11-29 12:00] LABS: CALCIUM 8.7 mg/dl (8.4-10.2); CREATININE 0.67 mg/dl (0.44-1.00); POTASSIUM 3.4 mmol/L (3.5-5.1)
--- NOTE | 2016-11-29 12:33 | GILP ---
DATE OF PROCEDURE: PROCEDURE: Esophagogastroduodenoscopy. PREOPERATIVE DIAGNOSIS: Patient presenting with history of abdominal pain, routine workup is negati ve. Rule out peptic ulcer disease, gastritis. POSTOPERATIVE DIAGNOSES: 1. Diffuse moderate degree of patchy gastritis. 2. Antral polyp. 3. Decrease the duodenal folds. 4. Mild reflux esophagitis. DESCRIPTION OF PROCEDURE: After the informed written consent was obtained, the patient was asked to lie on the left lateral side. The patient was given 3 mg Versed and 50 mcg of fentanyl as intraven ous anesthesia. When the patient became somnolent, Olympus video upper endoscope was introduced into the oropharynx, then into the esophagus. The entire esophagus was examined. Minimal degree of erythema noted abov e the GE junction indicating mild reflux esophagitis. Scope at this time was advanced into the stom ach. Entire stomach showed evidence of several areas of erythema indicating mild to moderate degree of patchy gastritis. Biopsy was done from the antrum, the lesser curvature and the fundus to rule out H. pylori infection. There is a small polyp noted which probably is a submucosal polyp in the a ntrum. Biopsies were done of the polyp. Duodenum showed evidence of a decrease the duodenal folds, rule out celiac sprue. Biopsies were obtained. Scope at this time was withdrawn, no additional ab normalities detected and the procedure was terminated. PLAN: Recommend omeprazole 40 mg a day. Meanwhile, wait for the pathology report. Dictated By: KEITH SOLOMON/LUCILA Conf#: [id number] DID#: [id number] CC: MARCELINO DIGGS MD;*End*
[2016-11-29 13:36] LABS: ANISOCYTOSIS 2+ (0-0); BASOPHILS % (M) 1 % (0-2); GIANT THROMBO% (M) 1 % (0-0); MICROCYTOSIS 2+ (0-0); MONOCYTES % (M) 8 % (0-11); PLATELET ESTIMATE NORMAL; POLYCHROMASIA 3+ (0-0); REACTIVE LYMPHOCYTES% (M) 13 % (0-0)
--- NOTE | 2016-11-29 16:20 | PN ---
Date/Time of Note Date/Time of Note DATE: 11/29/16 TIME: 16:12 Assessment/Plan VTE Prophylaxis VTE Prophylaxis Intervention: SCD's Lines/Catheters IV [facility]ter [facility] (from [facility]): Peripheral IV Central line still needed: Yes Urinary Cath still in place: No Assessment/Plan Chief Complaint/Hosp Course Patient is status post EGD today, denies any nausea and vomiting. Assessment/Plan - Urinary tract infection. Continue Rocephin. - Possible sepsis with leukocytosis and shortness of breath, resolved. - Pulmonary embolism ruled out. - Right breast carcinoma, status post chemotherapy on 11/15/2016, left chest Port-A-Cath. Dr. Ibarra is following in oncology consultation. - Transaminitis, resolving. Dr. Rivera is following in gastroenterology consultation - Gastritis per EGD, continue Protonix. Further recommendations based on clinical course. Plan of care discussed with Dr. Florez. Problems: Exam/Review of Systems Vital Signs Vitals Vital Signs Date Time Temp Pulse Resp B/P Pulse Ox O2 Delivery O2 Flow Rate FiO2 11/29/16 14:00 98.7 74 18 112/72 97 11/29/16 11:16 Room Air 11/29/16 10:56 3.0 Intake and Output 11/28/16 11/28/16 11/29/16 15:00 23:00 07:00 Intake Total 1150 ml 800 ml Balance 1150 ml 800 ml Exam Constitutional: alert Head: normocephalic Neck: supple Respiratory: normal air movement Cardiovascular: nl pulses Gastrointestinal: non-tender, soft Extremities: normal pulses Results Result Diagram: 11/29/16 1128 11/29/16 1128 Results 24 hrs Laboratory Tests Test 11/29/16 11:28 White Blood Count 6.6 # Red Blood Count 3.94 L Hemoglobin 10.7 L Hematocrit 32.9 L Mean Corpuscular Volume 83.5 Mean Corpuscular Hemoglobin 27.2 L Mean Corpuscular Hemoglobin Concent 32.5 Red Cell Distribution Width 12.1 Platelet Count 298 Mean Platelet Volume 9.9 Neutrophils % Segmented Neutrophils % (Manual) 50 Band Neutrophils % (Manual) 1 Lymphocytes % Lymphocytes % (Manual) 27 Reactive Lymphocytes % (Manual) 13 H Monocytes % Monocytes % (Manual) 8 Eosinophils % Basophils % Basophils % (Manual) 1 Nucleated Red Blood Cells % 0.0 Neutrophils # Neutrophils # (Manual) 3.3 Band Neutrophils # 0.0 Absolute Lymphocytes (Manual) 1.7 Lymphocytes # Reactive Lymphocytes # 0.8 H Monocytes # Absolute Monocytes (Manual) 0.5 Eosinophils # Basophils # Basophils # (Manual) 0.0 Nucleated Red Blood Cells # Platelet Estimate NORMAL Giant Platelets 1 H Polychromasia 3+ Anisocytosis 2+ Microcytosis 2+ Sodium Level 141 Potassium Level 3.4 L Chloride Level 109 Carbon Dioxide Level 27 Anion Gap 8 Blood Urea Nitrogen 6 L Creatinine 0.67 Glucose Level 167 Calcium Level 8.7 Medications Medications Current Medications Sodium Chloride (NS) 1,000 ml @ 100 mls/hr Q10H IV Last administered on 03:20; Admin Dose 100 MLS/HR; Start 11/26/16 at 22:16 Ondansetron HCl (Zofran Inj) 4 mg Q6H PRN IV NAUSEA AND/OR VOMITING; Start at 22:30 Acetaminophen (Tylenol Tab) 650 mg Q6H PRN PO PAIN LEVEL 1-3 OR FEVER Last administered on 11/28/16 16:42; Admin Dose 650 MG; Start 11/26/16 at 22:30 Hydromorphone HCl (Dilaudid) 0.5 mg Q4H PRN IV SEVERE PAIN LEVEL 7-10; Start 11/26/16 at 22:30 Enoxaparin Sodium 30 mg 30 mg DAILY SC ; Start 11/27/16 at 09:00 Ceftriaxone Sodium (Rocephin) 50 ml @ 100 mls/hr Q24H IVPB Last administered on 11/28/16 21:05; Admin Dose 100 MLS/HR; Start 11/27/16 at 21:00 Famotidine (Pepcid) 20 mg Q12 PO Last administered on 11/28/16 21:05; Admin Dose 20 MG; Start 11/27/16 at 21:00 Losartan Potassium (Cozaar) 25 mg DAILY PO Last administered on 11/28/16 02: 00; Admin Dose 25 MG; Start 11/28/16 at 02:00 Amlodipine Besylate (Norvasc) 5 mg DAILY PO Last administered on 11/28/16 02: 00; Admin Dose 5 MG; Start 11/28/16 at 02:00 BENEDICT TSAI Nov 29, 2016 16:20
[2016-11-29] MEDS ORDERED: POTASSIUM CHLORIDE 20 MEQ POWDER FOR ORAL SOLN PO ONE (16:30)
--- NOTE | 2016-11-29 17:51 | RADRPT ---
Echocardiogram Report Patient Name: GAVIOTA BAKER Gender: Female Date: 1965 Study Date: 29-Nov-2016 Town Clerk: Tom [facility] Location: I Ref. Physician: MARCELINO DIGGS Quality: Adequate Procedures: Transthoracic echocardiogram with complete 2D, M-Mode, and doppler examination. Indications: Breast CA. 2D/M Mode Doppler Measurement Value Normal Ranges Measurement Value Normal Ranges LVIDd 2D 3.7 3.5 - 5.6 cm AV Peak Jony 1.3 m/sec LVIDs 2D 2.7 2.1 - 4.1 cm AV Peak PG 7.0 mmHg FS 2D 28.9 % LVOT Peak Jony 1.1 m/sec LVPWd 2D 1.1 0.6 - 1.1 cm LVOT Peak PG 5.0 mmHg IVSd 2D 1.1 0.6 - 1.1 cm MV E Peak Jony 0.8 m/sec IVS/LVPW 2D 1.0 MV A Peak Jony 0.9 m/sec AoR Diam 2D 2.4 2.0 - 3.7 cm MV E/A 0.9 LA/Ao 2D 1 0 - 1 MV Decel Time 201 msec EDV 2D 52.3 cm3 MV E/A 0.9 ESV 2D 18.8 cm3 TR Peak Jony 2.8 m/sec LA Dimen 2D 3.3 2.3 - 4.0 cm TR Peak PG 31.0 mmHg RVSP 34.0 mmHg Findings Left Ventricle: Normal left ventricular systolic function. Normal left ventricular cavity size. Left ventricular wall thickness upper limits of normal. Ejection fraction is visually estimated at 5560 %. Tissue Doppler/Mitral Doppler indices are consistent with pseudonormalization with mildly elevated left atrial pressure (Stage II diastolic dysfunction). Right Ventricle: Normal right ventricular size. Normal right ventricular systolic function. Left Atrium: The left atrium is normal in size. Right Atrium: The right atrium is normal in size. Mitral Valve: Mild mitral leaflet calcification. Mild mitral annular calcification. Trace mitral regurgitation. Aortic Valve: Normal appearance of the aortic valve. No significant aortic stenosis or insufficiency. Tricuspid Valve: Normal appearance of the tricuspid valve. Estimated peak PA systolic pressure 34 mmHg. There is mild tricuspid regurgitation. Pulmonic Valve: Pulmonic valve not well visualized. There is trace pulmonic regurgitation. Pericardium: Normal pericardium with no significant pericardial effusion. Trivial pericardial effusion. Aorta: Normal aortic root. IVC: Normal size and normal respiratory collapse consistent with normal right atrial pressure. Conclusions 1.Normal left ventricular systolic function. Normal left ventricular cavity size. Left ventricular wall thickness upper limits of normal. Ejection fraction is visually estimated at 55-60 %. Tissue Doppler/Mitral Doppler indices are consistent with pseudonormalization with mildly elevated left atrial pressure (Stage II diastolic dysfunction). 2.Mild mitral leaflet calcification. Mild mitral annular calcification. Trace mitral regurgitation. 3.Normal appearance of the tricuspid valve. Estimated peak PA systolic pressure 34 mmHg. There is mild tricuspid regurgitation. 4.Pulmonic valve not well visualized. There is trace pulmonic regurgitation. 5.Normal pericardium with no significant pericardial effusion. Trivial pericardial effusion. Electronically Signed By: Hiro Ruelas 29-Nov-2016 17:50:44 -0700 Patient Name: GAVIOTA BAKER Study Date: 29-Nov-2016 [id number]
[2016-11-29] MEDS: CEFTRIAXONE 1 GM/50 ML (PMX) 50 ML IVPB SCH (21:38)
--- NOTE | 2016-11-29 23:30 | CONS ---
Date/Time of Note Date/Time of Note DATE: 11/29/16 TIME: 23:24 Assessment/Plan Assessment/Plan Chief Complaint/Hosp Course - Right breast carcinoma, status post chemotherapy on 11/15/2016, left chest Port-A-Cath. D/W DR LYNN RECORD REVIEWED PT WITH TRIPLE + R BREAST CANCER ON NEOADJUVANT 02/17 [facility] POST NEUPOGEN 3/5 WILL GIVE 2 MORE DOSES WHILE IN THE HOSPITAL - Urinary tract infection. Continue Rocephin. - Possible sepsis with leukocytosis and shortness of breath, resolved. - Pulmonary embolism ruled out. - Transaminitis, resolving. Dr. Rivera is following in gastroenterology consultation - Gastritis per EGD, continue Protonix. Problems: Consultation Date/Type/Reason Admit Date/Time Nov 26, 2016 at 21:04 Initial Consult Date 11/28/16 Type of Consultation: [facility] Referring Provider: MARCELINO DIGGS MD 24 HR Interval Summary Free Text/Dictation ALL NOTED D/W DR BIANCHI PT WITH TRIPLE + R BREAST CANCER ON NEOADJUVANT 02/17 [facility] POST NEUPOGEN 3/5 Exam/Review of Systems Vital Signs Vitals Vital Signs Date Time Temp Pulse Resp B/P Pulse Ox O2 Delivery O2 Flow Rate FiO2 11/29/16 21:28 98.1 72 20 122/69 98 11/29/16 11:16 Room Air 11/29/16 10:56 3.0 Intake and Output 11/28/16 11/28/16 11/29/16 15:00 23:00 07:00 Intake Total 1150 ml 800 ml Balance 1150 ml 800 ml Exam GENERAL: Well-developed, obese female in no acute distress. HEENT: Head is atraumatic, normocephalic. Pupils equal, round, reactive to light and accommodation. Oral mucosa is pink and moist. NECK: Supple, no cervical lymphadenopathy, no thyromegaly. CHEST: Lungs clear bilaterally. There is no rhonchi, wheezes, rales noted. R BREAST MASS CARDIOVASCULAR: Normal S1, S2. No murmurs, gallops, clicks, rubs noted. The patient has a left chest Perm-A-Cath with intact surgical incision. Abdomen is round, soft, nondistended, nontender. Bowel sounds present. There is no guarding, no rebound tenderness. EXTREMITIES: No edema, clubbing, cyanosis. Pulses equal bilaterally 2+. SKIN: There is no rash, petechiae noted. NEUROLOGIC: Patient is awake, alert and oriented x4. No focal deficits noted. Motor strength 5/5 in all extremities. Results Result Diagram: 11/29/16 1128 11/29/16 1128 Results 24 hrs Laboratory Tests Test 11/29/16 11:28 White Blood Count 6.6 # Red Blood Count 3.94 L Hemoglobin 10.7 L Hematocrit 32.9 L Mean Corpuscular Volume 83.5 Mean Corpuscular Hemoglobin 27.2 L Mean Corpuscular Hemoglobin Concent 32.5 Red Cell Distribution Width 12.1 Platelet Count 298 Mean Platelet Volume 9.9 Neutrophils % Segmented Neutrophils % (Manual) 50 Band Neutrophils % (Manual) 1 Lymphocytes % Lymphocytes % (Manual) 27 Reactive Lymphocytes % (Manual) 13 H Monocytes % Monocytes % (Manual) 8 Eosinophils % Basophils % Basophils % (Manual) 1 Nucleated Red Blood Cells % 0.0 Neutrophils # Neutrophils # (Manual) 3.3 Band Neutrophils # 0.0 Absolute Lymphocytes (Manual) 1.7 Lymphocytes # Reactive Lymphocytes # 0.8 H Monocytes # Absolute Monocytes (Manual) 0.5 Eosinophils # Basophils # Basophils # (Manual) 0.0 Nucleated Red Blood Cells # Platelet Estimate NORMAL Giant Platelets 1 H Polychromasia 3+ Anisocytosis 2+ Microcytosis 2+ Sodium Level 141 Potassium Level 3.4 L Chloride Level 109 Carbon Dioxide Level 27 Anion Gap 8 Blood Urea Nitrogen 6 L Creatinine 0.67 Glucose Level 167 Calcium Level 8.7 Medications Medications Current Medications Sodium Chloride (NS) 1,000 ml @ 100 mls/hr Q10H IV Last administered on 03:20; Admin Dose 100 MLS/HR; Start 11/26/16 at 22:16 Ondansetron HCl (Zofran Inj) 4 mg Q6H PRN IV NAUSEA AND/OR VOMITING; Start at 22:30 Acetaminophen (Tylenol Tab) 650 mg Q6H PRN PO PAIN LEVEL 1-3 OR FEVER Last administered on 11/28/16 16:42; Admin Dose 650 MG; Start 11/26/16 at 22:30 Hydromorphone HCl (Dilaudid) 0.5 mg Q4H PRN IV SEVERE PAIN LEVEL 7-10; Start 11/26/16 at 22:30 Enoxaparin Sodium 30 mg 30 mg DAILY SC ; Start 11/27/16 at 09:00 Ceftriaxone Sodium (Rocephin) 50 ml @ 100 mls/hr Q24H IVPB Last administered on 11/29/16 21:38; Admin Dose 100 MLS/HR; Start 11/27/16 at 21:00 Losartan Potassium (Cozaar) 25 mg DAILY PO Last administered on 11/28/16 02: 00; Admin Dose 25 MG; Start 11/28/16 at 02:00 Amlodipine Besylate (Norvasc) 5 mg DAILY PO Last administered on 11/28/16 02: 00; Admin Dose 5 MG; Start 11/28/16 at 02:00 Pantoprazole (Protonix Tab) 40 mg DAILY@06 PO ; Start 11/30/16 at 06:00 ASHA BARAJAS MD Nov 29, 2016 23:30
[2016-11-30 02:25] VITALS: BP 128/76; RESP 20
[2016-11-30] MEDS: PANTOPRAZOLE (EC) 40 MG TAB PO SCH (05:47)
[2016-11-30] MEDS: SOD CHLORIDE 0.9% 1,000 ML IV SCH (06:16)
[2016-11-30 07:17] VITALS: BP 117/71; RESP 18
[2016-11-30] MEDS: ENOXAPARIN 30 MG/0.3 ML SYG SC SCH (09:00)
[2016-11-30] MEDS: AMLODIPINE 5 MG TAB PO SCH (09:00)
[2016-11-30 09:13] LABS: ABNORMAL IP MESSAGE 1; BASOPHIL # 0.1 10^3/ul (0.0-0.1); EOSINOPHILS % 0.4 % (0.0-7.0); HEMOGLOBIN 11.1 g/dl (12.0-16.0); LYMPHOCYTES # 1.8 10^3/ul (0.8-2.9); LYMPHOCYTES % 25.3 % (15.0-51.0); MEAN CORPUSCULAR HEMOGLOBIN 27.8 pg (29.0-33.0); MEAN CORPUSCULAR HGB CONC 32.6 g/dl (32.0-37.0); MEAN PLATELET VOLUME 10.3 fl (7.4-10.4); MONOCYTE # 0.7 10^3/ul (0.3-0.9); MONOCYTES % 9.2 % (0.0-11.0); NEUTROPHIL # 3.8 10^3/ul (1.6-7.5); NEUTROPHILS % 54.2 % (39.0-77.0); PLATELET COUNT 291 10^3/UL (140-415); WHITE BLOOD COUNT 7.1 10^3/ul (4.8-10.8)
[2016-11-30 09:39] LABS: CALCIUM 8.9 mg/dl (8.4-10.2); CREATININE 0.8 mg/dl (0.44-1.00)
[2016-11-30 09:41] LABS: POSITIVE DIFF @See below
[2016-11-30 15:01] VITALS: BP 122/62; RESP 18
[2016-11-30] MEDS: ACETAMINOPHEN 325 MG TAB PO PRN (16:31)
[2016-11-30] MEDS: FILGRASTIM 300 MCG INJ SC SCH (17:56)
--- NOTE | 2016-11-30 18:32 | CONS ---
Date/Time of Note Date/Time of Note DATE: 11/30/16 TIME: 18:30 Assessment/Plan Assessment/Plan Chief Complaint/Hosp Course - Right breast carcinoma, status post chemotherapy on 11/15/2016, left chest Port-A-Cath. D/W DR LYNN RECORD REVIEWED PT WITH TRIPLE + R BREAST CANCER ON NEOADJUVANT 02/17 [facility] POST NEUPOGEN 3/5 WILL GIVE 2 MORE DOSES WHILE IN THE HOSPITAL - Urinary tract infection. Continue Rocephin. - Possible sepsis with leukocytosis and shortness of breath, resolved. - Pulmonary embolism ruled out. - Transaminitis, resolving. Dr. Rivera is following in gastroenterology consultation - Gastritis per EGD, continue Protonix. Problems: Consultation Date/Type/Reason Admit Date/Time Nov 26, 2016 at 21:04 Initial Consult Date 11/28/16 [facility] Referring Provider: MARCELINO DIGGS MD 24 HR Interval Summary Free Text/Dictation all noted Neupogen -ordered Exam/Review of Systems Vital Signs Vitals Vital Signs Date Time Temp Pulse Resp B/P Pulse Ox O2 Delivery O2 Flow Rate FiO2 11/30/16 15:01 98.0 84 18 122/62 96 11/29/16 11:16 Room Air 11/29/16 10:56 3.0 Intake and Output 11/29/16 11/29/16 11/30/16 15:00 23:00 07:00 Intake Total 500 ml 1010 ml 600 ml Balance 500 ml 1010 ml 600 ml Exam Constitutional: alert Head: normocephalic Neck: supple Respiratory: normal air movement Cardiovascular: nl pulses Gastrointestinal: non-tender, soft Extremities: normal pulses Results Result Diagram: 11/30/16 0736 11/30/16 0736 Results 24 hrs Laboratory Tests Test 11/30/16 07:36 White Blood Count 7.1 Red Blood Count 4.00 L Hemoglobin 11.1 L Hematocrit 34.0 L Mean Corpuscular Volume 85.0 Mean Corpuscular Hemoglobin 27.8 L Mean Corpuscular Hemoglobin Concent 32.6 Red Cell Distribution Width 12.0 Platelet Count 291 Mean Platelet Volume 10.3 Neutrophils % 54.2 Lymphocytes % 25.3 Monocytes % 9.2 Eosinophils % 0.4 Basophils % 1.0 Nucleated Red Blood Cells % 0.0 Neutrophils # 3.8 Lymphocytes # 1.8 Monocytes # 0.7 Eosinophils # 0.0 Basophils # 0.1 Nucleated Red Blood Cells # 0.0 Sodium Level 143 Potassium Level 4.0 Chloride Level 107 Carbon Dioxide Level 27 Anion Gap 13 Blood Urea Nitrogen 10 Creatinine 0.80 Glucose Level 85 # Calcium Level 8.9 Medications Medications Current Medications Ondansetron HCl (Zofran Inj) 4 mg Q6H PRN IV NAUSEA AND/OR VOMITING; Start at 22:30 Acetaminophen (Tylenol Tab) 650 mg Q6H PRN PO PAIN LEVEL 1-3 OR FEVER Last administered on 11/30/16 16:31; Admin Dose 650 MG; Start 11/26/16 at 22:30 Hydromorphone HCl 0.5 mg 0.5 mg Q4H PRN IV SEVERE PAIN LEVEL 7-10; Start 11/26 at 22:30 Ceftriaxone Sodium (Rocephin) 50 ml @ 100 mls/hr Q24H IVPB Last administered on 11/29/16 21:38; Admin Dose 100 MLS/HR; Start 11/27/16 at 21:00 Amlodipine Besylate (Norvasc) 5 mg DAILY PO Last administered on 11/28/16 02: 00; Admin Dose 5 MG; Start 11/28/16 at 02:00 Pantoprazole (Protonix Tab) 40 mg DAILY@06 PO Last administered on 11/30/16 05:47; Admin Dose 40 MG; Start 11/30/16 at 06:00 Filgrastim (Neupogen) 300 mcg DAILY@17 SC Last administered on 11/30/16 17:56 ; Admin Dose 300 MCG; Start 11/30/16 at 17:00; Stop 12/01/16 at 17:01 ASHA BARAJAS MD Nov 30, 2016 18:32
[2016-11-30 19:30] VITALS: BP 130/86; RESP 20
[2016-11-30] MEDS: CEFTRIAXONE 1 GM/50 ML (PMX) 50 ML IVPB SCH (20:12)
--- NOTE | 2016-11-30 22:37 | PN ---
Date/Time of Note Date/Time of Note DATE: 11/30/16 TIME: 22:37 Assessment/Plan Lines/Catheters [facility]from [facility] Saline Lock Urinary Cath still in place: No Assessment/Plan Assessment/Plan - Urinary tract infection. Continue Rocephin. - Possible sepsis with leukocytosis and shortness of breath, resolved. - Pulmonary embolism ruled out. - Right breast carcinoma, status post chemotherapy on 11/15/2016, left chest Port-A-Cath. Dr. Ibarra is following in oncology consultation. - Transaminitis, resolving. Dr. Rivera is following in gastroenterology consultation - Gastritis per EGD, continue Protonix. Further recommendations based on clinical course. Plan of care discussed with Dr. Florez. Exam/Review of Systems Vital Signs Vitals Vital Signs Date Time Temp Pulse Resp B/P Pulse Ox O2 Delivery O2 Flow Rate FiO2 11/30/16 19:30 97.7 73 20 130/86 98 11/29/16 11:16 Room Air 11/29/16 10:56 3.0 Intake and Output 11/29/16 11/29/16 11/30/16 15:00 23:00 07:00 Intake Total 500 ml 1010 ml 600 ml Balance 500 ml 1010 ml 600 ml Results Result Diagram: 11/30/16 0736 11/30/16 0736 Results 24 hrs Laboratory Tests Test 11/30/16 07:36 White Blood Count 7.1 Red Blood Count 4.00 L Hemoglobin 11.1 L Hematocrit 34.0 L Mean Corpuscular Volume 85.0 Mean Corpuscular Hemoglobin 27.8 L Mean Corpuscular Hemoglobin Concent 32.6 Red Cell Distribution Width 12.0 Platelet Count 291 Mean Platelet Volume 10.3 Neutrophils % 54.2 Lymphocytes % 25.3 Monocytes % 9.2 Eosinophils % 0.4 Basophils % 1.0 Nucleated Red Blood Cells % 0.0 Neutrophils # 3.8 Lymphocytes # 1.8 Monocytes # 0.7 Eosinophils # 0.0 Basophils # 0.1 Nucleated Red Blood Cells # 0.0 Sodium Level 143 Potassium Level 4.0 Chloride Level 107 Carbon Dioxide Level 27 Anion Gap 13 Blood Urea Nitrogen 10 Creatinine 0.80 Glucose Level 85 # Calcium Level 8.9 Medications Medications Current Medications Ondansetron HCl (Zofran Inj) 4 mg Q6H PRN IV NAUSEA AND/OR VOMITING Last administered on 11/30/16 21:49; Admin Dose 4 MG; Start 11/26/16 at 22:30 Acetaminophen (Tylenol Tab) 650 mg Q6H PRN PO PAIN LEVEL 1-3 OR FEVER Last administered on 11/30/16 16:31; Admin Dose 650 MG; Start 11/26/16 at 22:30 Hydromorphone HCl 0.5 mg 0.5 mg Q4H PRN IV SEVERE PAIN LEVEL 7-10; Start 11/26 at 22:30 Ceftriaxone Sodium (Rocephin) 50 ml @ 100 mls/hr Q24H IVPB Last administered on 11/30/16 20:12; Admin Dose 100 MLS/HR; Start 11/27/16 at 21:00 Amlodipine Besylate (Norvasc) 5 mg DAILY PO Last administered on 11/28/16 02: 00; Admin Dose 5 MG; Start 11/28/16 at 02:00 Pantoprazole (Protonix Tab) 40 mg DAILY@06 PO Last administered on 11/30/16 05:47; Admin Dose 40 MG; Start 11/30/16 at 06:00 Filgrastim (Neupogen) 300 mcg DAILY@17 SC Last administered on 11/30/16 17:56 ; Admin Dose 300 MCG; Start 11/30/16 at 17:00; Stop 12/01/16 at 17:01 BETTY PEDROZA Nov 30, 2016 22:37
[2016-12-01] MEDS ORDERED: AL HYDROX/MG HYDROX/SIMETH 30 ML CUP PO PRN (04:00)
[2016-12-01] MEDS: PANTOPRAZOLE (EC) 40 MG TAB PO SCH (06:44)
[2016-12-01 07:53] VITALS: BP 142/68; RESP 18
[2016-12-01] MEDS: AMLODIPINE 5 MG TAB PO SCH (08:44)
[2016-12-01 11:42] LABS: ALBUMIN 3.6 g/dl (3.3-4.9); ALBUMIN/GLOBULIN RATIO 0.94; BILIRUBIN,INDIRECT 0.1 mg/dl (0-1.1); BILIRUBIN,TOTAL 0.1 mg/dl (0.2-1.3); CALCIUM 9.2 mg/dl (8.4-10.2); CREATININE 0.77 mg/dl (0.44-1.00); POTASSIUM 3.3 mmol/L (3.5-5.1); TOTAL PROTEIN 7.4 g/dl (6.1-8.1)
[2016-12-01 14:00] VITALS: BP 111/61; RESP 20
[2016-12-01] MEDS: FILGRASTIM 300 MCG INJ SC SCH (17:27)
--- NOTE | 2016-12-01 17:31 | PN ---
Date/Time of Note Date/Time of Note DATE: 12/01/16 TIME: 17:31 Assessment/Plan VTE Prophylaxis VTE Prophylaxis Intervention: SCD's Lines/Catheters [facility]from [facility] Saline Lock Urinary Cath still in place: No Assessment/Plan Chief Complaint/Hosp Course Assessment/Plan - Urinary tract infection. Continue Rocephin. - Possible sepsis with leukocytosis and shortness of breath, resolved. - Pulmonary embolism ruled out. - Right breast carcinoma, status post chemotherapy on 11/15/2016, left chest Port-A-Cath. Dr. Ibarra is following in oncology consultation. - Transaminitis, resolving. Dr. Rivera is following in gastroenterology consultation - Gastritis per EGD, continue Protonix. Further recommendations based on clinical course. Plan of care discussed with Dr. Florez. Problems: Exam/Review of Systems Vital Signs Vitals Vital Signs Date Time Temp Pulse Resp B/P Pulse Ox O2 Delivery O2 Flow Rate FiO2 12/01/16 14:00 98.5 78 20 111/61 98 11/29/16 11:16 Room Air 11/29/16 10:56 3.0 Intake and Output 11/30/16 11/30/16 12/01/16 15:00 23:00 07:00 Intake Total 940 ml 950 ml Output Total 800 ml 1200 ml Balance 140 ml -250 ml Exam Constitutional: alert Head: normocephalic Neck: supple Respiratory: normal air movement Cardiovascular: nl pulses Gastrointestinal: non-tender, soft Extremities: normal pulses Results Result Diagram: 11/30/16 0736 12/01/16 1040 Results 24 hrs Laboratory Tests Test 12/01/16 10:40 Sodium Level 141 Potassium Level 3.3 L Chloride Level 111 H Carbon Dioxide Level 21 Anion Gap 12 Blood Urea Nitrogen 10 Creatinine 0.77 Glucose Level 152 Calcium Level 9.2 Total Bilirubin 0.1 L Direct Bilirubin 0.00 Indirect Bilirubin 0.1 Aspartate Amino Transf (AST/SGOT) 26 Alanine Aminotransferase (ALT/SGPT) 57 Alkaline Phosphatase 124 H Total Protein 7.4 Albumin 3.6 Globulin 3.80 H Albumin/Globulin Ratio 0.94 Lipase 398 H Medications Medications Current Medications Ondansetron HCl (Zofran Inj) 4 mg Q6H PRN IV NAUSEA AND/OR VOMITING Last administered on 11/30/16t 21:49; Admin Dose 4 MG; Start 11/26/16 at 22:30 Acetaminophen (Tylenol Tab) 650 mg Q6H PRN PO PAIN LEVEL 1-3 OR FEVER Last administered on 11/30/16 16:31; Admin Dose 650 MG; Start 11/26/16 at 22:30 Hydromorphone HCl 0.5 mg 0.5 mg Q4H PRN IV SEVERE PAIN LEVEL 7-10 Last administered on 12/01/16 01:45; Admin Dose 0.5 MG; Start 11/26/16 at 22:30 Ceftriaxone Sodium (Rocephin) 50 ml @ 100 mls/hr Q24H IVPB Last administered on 11/30/16 20:12; Admin Dose 100 MLS/HR; Start 11/27/16 at 21:00 Amlodipine Besylate (Norvasc) 5 mg DAILY PO Last administered on 12/01/16 08: 44; Admin Dose 5 MG; Start 11/28/16 at 02:00 Pantoprazole (Protonix Tab) 40 mg DAILY@06 PO Last administered on 12/01/16 06:44; Admin Dose 40 MG; Start 11/30/16 at 06:00 Al Hydrox/Mg Hydrox/Simethicone (Mag-Al Plus) 30 ml Q6H PRN PO GASTROINTESTINAL UPSET Last administered on 12/01/16 03:39; Admin Dose 30 ML; Start 12/01/16 at 04:00 BENEDICT TSAI Dec 01, 2016 17:31
[2016-12-01] MEDS ORDERED: POTASSIUM CHLORIDE 20 MEQ POWDER FOR ORAL SOLN PO ONE (18:00)
--- NOTE | 2016-12-01 18:07 | CONS ---
Date/Time of Note Date/Time of Note DATE: 12/01/16 TIME: 18:07 Assessment/Plan Assessment/Plan Chief Complaint/Hosp Course - Right breast carcinoma, status post chemotherapy on 11/15/2016, left chest Port-A-Cath. D/W DR LYNN RECORD REVIEWED PT WITH TRIPLE + R BREAST CANCER ON NEOADJUVANT 02/17 [facility] POST NEUPOGEN 3/5 PLAN- 2 MORE DOSES WHILE IN THE HOSPITAL - Urinary tract infection. Continue Rocephin. - Possible sepsis with leukocytosis and shortness of breath, resolved. - Pulmonary embolism ruled out. - Transaminitis, resolving. Dr. Rivera is following in gastroenterology consultation - Gastritis per EGD, continue Protonix. Problems: Consultation Date/Type/Reason Admit Date/Time Nov 26, 2016 at 21:04 Initial Consult Date 11/28/16 Type of Consultation: [facility] Referring Provider: MARCELINO DIGGS MD 24 HR Interval Summary Free Text/Dictation ALL NOTED D/W PT AND RN Exam/Review of Systems Vital Signs Vitals Vital Signs Date Time Temp Pulse Resp B/P Pulse Ox O2 Delivery O2 Flow Rate FiO2 12/01/16 14:00 98.5 78 20 111/61 98 11/29/16 11:16 Room Air 11/29/16 10:56 3.0 Intake and Output 11/30/16 11/30/16 12/01/16 15:00 23:00 07:00 Intake Total 940 ml 950 ml Output Total 800 ml 1200 ml Balance 140 ml -250 ml Exam Constitutional: alert Head: normocephalic Neck: supple Respiratory: normal air movement Cardiovascular: nl pulses Gastrointestinal: non-tender, soft Extremities: normal pulses Results Result Diagram: 11/30/16 0736 12/01/16 1040 Results 24 hrs Laboratory Tests Test 12/01/16 10:40 Sodium Level 141 Potassium Level 3.3 L Chloride Level 111 H Carbon Dioxide Level 21 Anion Gap 12 Blood Urea Nitrogen 10 Creatinine 0.77 Glucose Level 152 Calcium Level 9.2 Total Bilirubin 0.1 L Direct Bilirubin 0.00 Indirect Bilirubin 0.1 Aspartate Amino Transf (AST/SGOT) 26 Alanine Aminotransferase (ALT/SGPT) 57 Alkaline Phosphatase 124 H Total Protein 7.4 Albumin 3.6 Globulin 3.80 H Albumin/Globulin Ratio 0.94 Lipase 398 H Medications Medications Current Medications Ondansetron HCl (Zofran Inj) 4 mg Q6H PRN IV NAUSEA AND/OR VOMITING Last administered on 11/30/16 21:49; Admin Dose 4 MG; Start 11/26/16 at 22:30 Acetaminophen (Tylenol Tab) 650 mg Q6H PRN PO PAIN LEVEL 1-3 OR FEVER Last administered on 11/30/16 16:31; Admin Dose 650 MG; Start 11/26/16 at 22:30 Hydromorphone HCl 0.5 mg 0.5 mg Q4H PRN IV SEVERE PAIN LEVEL 7-10 Last administered on 12/01/16 01:45; Admin Dose 0.5 MG; Start 11/26/16 at 22:30 Ceftriaxone Sodium (Rocephin) 50 ml @ 100 mls/hr Q24H IVPB Last administered on 11/30/16 20:12; Admin Dose 100 MLS/HR; Start 11/27/16 at 21:00 Amlodipine Besylate (Norvasc) 5 mg DAILY PO Last administered on 12/01/16 08: 44; Admin Dose 5 MG; Start 11/28/16 at 02:00 Pantoprazole (Protonix Tab) 40 mg DAILY@06 PO Last administered on 12/01/16 06:44; Admin Dose 40 MG; Start 11/30/16 at 06:00 Al Hydrox/Mg Hydrox/Simethicone (Mag-Al Plus) 30 ml Q6H PRN PO GASTROINTESTINAL UPSET Last administered on 12/01/16 03:39; Admin Dose 30 ML; Start 12/01/16 at 04:00 ASHA BARAJAS MD Dec 01, 2016 18:07
[2016-12-01 20:00] VITALS: BP 116/57; RESP 19
[2016-12-01] MEDS: CEFTRIAXONE 1 GM/50 ML (PMX) 50 ML IVPB SCH (20:46)
[2016-12-02 02:29] VITALS: BP 131/65; RESP 18
[2016-12-02] MEDS: PANTOPRAZOLE (EC) 40 MG TAB PO SCH (06:23)
[2016-12-02 07:58] VITALS: BP 130/73; RESP 20
[2016-12-02] MEDS: AMLODIPINE 5 MG TAB PO SCH (08:43)
[2016-12-02 10:55] LABS: ABNORMAL IP MESSAGE 1; HEMATOCRIT 34.8 % (37.0-47.0); HEMOGLOBIN 11.7 g/dl (12.0-16.0); MEAN CORPUSCULAR HEMOGLOBIN 28.4 pg (29.0-33.0); MEAN CORPUSCULAR HGB CONC 33.6 g/dl (32.0-37.0); MEAN CORPUSCULAR VOLUME 84.5 fl (82.0-101.0); MEAN PLATELET VOLUME 10.3 fl (7.4-10.4); PLATELET COUNT 292 10^3/UL (140-415); RED BLOOD COUNT 4.12 10^6/ul (4.20-5.40); RED CELL DISTRIBUTION WIDTH 12.5 % (11.5-14.5)
[2016-12-02 10:57] LABS: POSITIVE DIFF @See below
[2016-12-02 11:06] LABS: BASOPHIL # 0.3 10^3/ul (0.0-0.1); BASOPHILS % 0.4 % (0.0-2.0); LYMPHOCYTES # 2.8 10^3/ul (0.8-2.9); LYMPHOCYTES % 4.8 % (15.0-51.0); MONOCYTE # 0.8 10^3/ul (0.3-0.9); MONOCYTES % 1.4 % (0.0-11.0)
[2016-12-02 11:14] LABS: CALCIUM 9.4 mg/dl (8.4-10.2); CREATININE 0.87 mg/dl (0.44-1.00); POTASSIUM 3.7 mmol/L (3.5-5.1)
[2016-12-02 12:38] LABS: WHITE BLOOD COUNT 58.3 10^3/ul (4.8-10.8)
--- NOTE | 2016-12-02 12:43 | PN ---
Date/Time of Note Date/Time of Note DATE: 12/02/16 TIME: 12:38 Assessment/Plan VTE Prophylaxis VTE Prophylaxis Intervention: other Lines/Catheters [facility] Saline Lock Urinary Cath still in place: No Assessment/Plan Assessment/Plan - Leukocytosis possible sec to being on Neupogen - per oncology, yakelin RN - Urinary tract infection. Continue Rocephin. - Possible sepsis with leukocytosis and shortness of breath, resolved. - Pulmonary embolism ruled out. - Right breast carcinoma, status post chemotherapy on 11/15/2016, left chest Port-A-Cath. Dr. Ibarra is following in oncology consultation. - Transaminitis, resolving. Dr. Rivera is following in gastroenterology consultation - Gastritis per EGD, continue Protonix. Further recommendations based on clinical course. Plan of care discussed with Dr. Florez. 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 Gastrointestinal: no complaints Exam/Review of Systems Vital Signs Vitals Vital Signs Date Time Temp Pulse Resp B/P Pulse Ox O2 Delivery O2 Flow Rate FiO2 12/02/16 07:58 98.1 86 20 130/73 97 11/29/16 11:16 Room Air 11/29/16 10:56 3.0 Intake and Output 12/01/16 12/01/16 12/02/16 15:00 23:00 07:00 Intake Total 300 ml 1250 ml 950 ml Output Total 1500 ml 850 ml Balance 300 ml -250 ml 100 ml Exam Constitutional: alert Eyes: nl conjunctiva Respiratory: diminished breath sounds Cardiovascular: other (S1S2) Gastrointestinal: non-tender, soft Musculoskeletal: nl extremities to inspection Extremities: normal pulses Neurological: nl speech Results Result Diagram: 12/02/16 1135 12/02/16 1037 Results 24 hrs Laboratory Tests Test 12/02/16 10:37 12/02/16 11:35 Sodium Level 142 Potassium Level 3.7 Chloride Level 110 Carbon Dioxide Level 22 Anion Gap 14 Blood Urea Nitrogen 11 Creatinine 0.87 Glucose Level 145 Calcium Level 9.4 White Blood Count 58.3 #H Red Blood Count 4.12 L Hemoglobin 11.7 L Hematocrit 34.8 L Mean Corpuscular Volume 84.5 Mean Corpuscular Hemoglobin 28.4 L Mean Corpuscular Hemoglobin Concent 33.6 Red Cell Distribution Width 12.5 Platelet Count 292 Mean Platelet Volume 10.3 Neutrophils % Lymphocytes % 4.8 L Monocytes % 1.4 Eosinophils % Basophils % 0.4 Nucleated Red Blood Cells % 0.0 Neutrophils # Lymphocytes # 2.8 Monocytes # 0.8 Eosinophils # Basophils # 0.3 H Nucleated Red Blood Cells # 0.0 Medications Medications Current Medications Ondansetron HCl (Zofran Inj) 4 mg Q6H PRN IV NAUSEA AND/OR VOMITING Last administered on 11/30/16 21:49; Admin Dose 4 MG; Start 11/26/16 at 22:30 Acetaminophen (Tylenol Tab) 650 mg Q6H PRN PO PAIN LEVEL 1-3 OR FEVER Last administered on 11/30/16 16:31; Admin Dose 650 MG; Start 11/26/16 at 22:30 Hydromorphone HCl 0.5 mg 0.5 mg Q4H PRN IV SEVERE PAIN LEVEL 7-10 Last administered on 12/01/16 01:45; Admin Dose 0.5 MG; Start 11/26/16 at 22:30 Ceftriaxone Sodium (Rocephin) 50 ml @ 100 mls/hr Q24H IVPB Last administered on 12/01/16 20:46; Admin Dose 100 MLS/HR; Start 11/27/16 at 21:00 Amlodipine Besylate (Norvasc) 5 mg DAILY PO Last administered on 12/02/16 08: 43; Admin Dose 5 MG; Start 11/28/16 at 02:00 Pantoprazole (Protonix Tab) 40 mg DAILY@06 PO Last administered on 12/02/16 06:23; Admin Dose 40 MG; Start 11/30/16 at 06:00 Al Hydrox/Mg Hydrox/Simethicone (Mag-Al Plus) 30 ml Q6H PRN PO GASTROINTESTINAL UPSET Last administered on 12/01/16 03:39; Admin Dose 30 ML; Start 12/01/16 at 04:00 BETTY PEDROZA Dec 02, 2016 12:43
[2016-12-02 12:50] LABS: ANISOCYTOSIS 2+ (0-0); MICROCYTOSIS 2+ (0-0); MONOCYTES % (M) 1 % (0-11); PLATELET ESTIMATE NORMAL; POLYCHROMASIA 1+ (0-0)
[2016-12-02 14:00] VITALS: BP 137/70; RESP 18
[2016-12-02 20:00] VITALS: BP 146/48; RESP 18
[2016-12-02] MEDS: CEFTRIAXONE 1 GM/50 ML (PMX) 50 ML IVPB SCH (21:08)
--- NOTE | 2016-12-02 23:08 | CONS ---
Date/Time of Note Date/Time of Note DATE: 12/02/16 TIME: 23:08 Assessment/Plan Assessment/Plan Chief Complaint/Hosp Course - Right breast carcinoma, status post chemotherapy on 11/15/2016, left chest Port-A-Cath. D/W DR LYNN RECORD REVIEWED PT WITH TRIPLE + R BREAST CANCER ON NEOADJUVANT 02/17 [facility] POST NEUPOGEN 3/5 POST 2 MORE DOSES WHILE IN THE HOSPITAL - Urinary tract infection. Continue Rocephin. - Possible sepsis with leukocytosis and shortness of breath, resolved. - Pulmonary embolism ruled out. - Transaminitis, resolving. Dr. Rivera is following in gastroenterology consultation - Gastritis per EGD, continue Protonix. Problems: Consultation Date/Type/Reason Admit Date/Time Nov 26, 2016 at 21:04 Initial Consult Date 11/28/16 Type of Consultation: [facility] Referring Provider: MARCELINO DIGGS MD 24 HR Interval Summary Free Text/Dictation ALL NOTED WBC- UP NEUPOGEN - DC Exam/Review of Systems Vital Signs Vitals Vital Signs Date Time Temp Pulse Resp B/P Pulse Ox O2 Delivery O2 Flow Rate FiO2 12/02/16 20:00 98.6 71 18 146/48 96 11/29/16 11:16 Room Air 11/29/16 10:56 3.0 Intake and Output 12/01/16 12/01/16 12/02/16 15:00 23:00 07:00 Intake Total 300 ml 1250 ml 950 ml Output Total 1500 ml 850 ml Balance 300 ml -250 ml 100 ml Exam Constitutional: alert Head: normocephalic Neck: supple Respiratory: normal air movement Cardiovascular: nl pulses Gastrointestinal: non-tender, soft Extremities: normal pulses Results Result Diagram: 12/02/16 1135 12/02/16 1037 Results 24 hrs Laboratory Tests Test 12/02/16 10:37 12/02/16 11:35 Sodium Level 142 Potassium Level 3.7 Chloride Level 110 Carbon Dioxide Level 22 Anion Gap 14 Blood Urea Nitrogen 11 Creatinine 0.87 Glucose Level 145 Calcium Level 9.4 White Blood Count 58.3 #H Red Blood Count 4.12 L Hemoglobin 11.7 L Hematocrit 34.8 L Mean Corpuscular Volume 84.5 Mean Corpuscular Hemoglobin 28.4 L Mean Corpuscular Hemoglobin Concent 33.6 Red Cell Distribution Width 12.5 Platelet Count 292 Mean Platelet Volume 10.3 Neutrophils % Segmented Neutrophils % (Manual) 92 H Band Neutrophils % (Manual) 4 Lymphocytes % 4.8 L Lymphocytes % (Manual) 3 L Monocytes % 1.4 Monocytes % (Manual) 1 Eosinophils % Basophils % 0.4 Nucleated Red Blood Cells % 0.0 Neutrophils # Neutrophils # (Manual) 55.0 H Band Neutrophils # 2.3 H Absolute Lymphocytes (Manual) 1.7 Lymphocytes # 2.8 Monocytes # 0.8 Absolute Monocytes (Manual) 0.5 Eosinophils # Basophils # 0.3 H Nucleated Red Blood Cells # 0.0 Platelet Estimate NORMAL Polychromasia 1+ Anisocytosis 2+ Microcytosis 2+ Medications Medications Current Medications Ondansetron HCl (Zofran Inj) 4 mg Q6H PRN IV NAUSEA AND/OR VOMITING Last administered on 11/30/16 21:49; Admin Dose 4 MG; Start 11/26/16 at 22:30 Acetaminophen (Tylenol Tab) 650 mg Q6H PRN PO PAIN LEVEL 1-3 OR FEVER Last administered on 11/30/16 16:31; Admin Dose 650 MG; Start 11/26/16 at 22:30 Hydromorphone HCl 0.5 mg 0.5 mg Q4H PRN IV SEVERE PAIN LEVEL 7-10 Last administered on 12/01/16 01:45; Admin Dose 0.5 MG; Start 11/26/16 at 22:30 Ceftriaxone Sodium (Rocephin) 50 ml @ 100 mls/hr Q24H IVPB Last administered on 12/02/16 21:08; Admin Dose 100 MLS/HR; Start 11/27/16 at 21:00 Amlodipine Besylate (Norvasc) 5 mg DAILY PO Last administered on 12/02/16 08: 43; Admin Dose 5 MG; Start 11/28/16 at 02:00 Pantoprazole (Protonix Tab) 40 mg DAILY@06 PO Last administered on 12/02/16 06:23; Admin Dose 40 MG; Start 11/30/16 at 06:00 Al Hydrox/Mg Hydrox/Simethicone (Mag-Al Plus) 30 ml Q6H PRN PO GASTROINTESTINAL UPSET Last administered on 12/01/16 03:39; Admin Dose 30 ML; Start 12/01/16 at 04:00 ASHA BARAJAS MD Dec 02, 2016 23:08
[2016-12-03 01:51] VITALS: BP 134/73; RESP 18
[2016-12-03] MEDS: PANTOPRAZOLE (EC) 40 MG TAB PO SCH (06:56)
[2016-12-03 08:05] VITALS: BP 143/74; RESP 18
[2016-12-03 08:54] LABS: ABNORMAL IP MESSAGE 1; BASOPHIL # 0.1 10^3/ul (0.0-0.1); BASOPHILS % 0.3 % (0.0-2.0); EOSINOPHILS # 0.1 10^3/ul (0.0-0.5); EOSINOPHILS % 0.3 % (0.0-7.0); HEMATOCRIT 34.5 % (37.0-47.0); HEMOGLOBIN 11.2 g/dl (12.0-16.0); LYMPHOCYTES # 2.2 10^3/ul (0.8-2.9); LYMPHOCYTES % 9.2 % (15.0-51.0); MEAN CORPUSCULAR HEMOGLOBIN 27.1 pg (29.0-33.0); MEAN CORPUSCULAR HGB CONC 32.5 g/dl (32.0-37.0); MEAN CORPUSCULAR VOLUME 83.5 fl (82.0-101.0); MEAN PLATELET VOLUME 10.7 fl (7.4-10.4); MONOCYTE # 0.7 10^3/ul (0.3-0.9); MONOCYTES % 2.8 % (0.0-11.0); NEUTROPHIL # 20.6 10^3/ul (1.6-7.5); NEUTROPHILS % 86.1 % (39.0-77.0); PLATELET COUNT 285 10^3/UL (140-415); RED BLOOD COUNT 4.13 10^6/ul (4.20-5.40); WHITE BLOOD COUNT 23.9 10^3/ul (4.8-10.8)
[2016-12-03 08:57] LABS: POSITIVE DIFF @See below
[2016-12-03] MEDS: AMLODIPINE 5 MG TAB PO SCH (09:14)
[2016-12-03 09:16] LABS: CALCIUM 9.1 mg/dl (8.4-10.2); CREATININE 0.71 mg/dl (0.44-1.00); POTASSIUM 3.4 mmol/L (3.5-5.1)
--- NOTE | 2016-12-03 11:35 | PDOCDIS ---
Discharge Instructions CONDITION Patient Condition: Stable HOME CARE INSTRUCTIONS: Diet Instructions: RegularSpecial Diet: REGULAR ACTIVITY: Activity Restrictions: Slowly Increase Activity Rest between Activity Avoid heavy lifting Do not Drive Do not operate Machinery Do not operate Power Tool Avoid Heavy Housework Bathing Restrictions: FOLLOW UP/APPOINTMENTS Follow-up Plan FU with Primary x 1 week FU with surgery as recommended. Call 911 or go to the nearest hospital if symptoms get worse. Patient and family verbalized understanding dc instructions. Dw Dr Sol/ staff BETTY PEDROZA Dec 03, 2016 11:35
[2016-12-03] MEDS ORDERED: AMLO-145 PO (11:41)
[2016-12-03 13:54] VITALS: BP 135/85; RESP 18
--- NOTE | 2016-12-03 23:11 | CONS ---
Date/Time of Note Date/Time of Note DATE: 12/03/16 TIME: 10:01 VK LE Assessment/Plan Assessment/Plan Chief Complaint/Hosp Course - Right breast carcinoma, status post chemotherapy on 11/15/2016, left chest Port-A-Cath. D/W DR LYNN RECORD REVIEWED PT WITH TRIPLE + R BREAST CANCER ON NEOADJUVANT 02/17 [facility] POST NEUPOGEN 3/ WILL GIVE 2 MORE DOSES WHILE IN THE HOSPITAL - Urinary tract infection. Continue Rocephin. - Possible sepsis with leukocytosis and shortness of breath, resolved. - Pulmonary embolism ruled out. - Transaminitis, resolving. Dr. Rivera is following in gastroenterology consultation - Gastritis per EGD, continue Protonix. Problems: Consultation Date/Type/Reason Admit Date/Time Nov 26, 2016 at 21:04 Initial Consult Date 11/28/16 Type of Consultation: [facility] Referring Provider: MARCELINO DIGGS MD Exam/Review of Systems Vital Signs Vitals Vital Signs Date Time Temp Pulse Resp B/P Pulse Ox O2 Delivery O2 Flow Rate FiO2 12/03/16 13:54 98.0 82 18 135/85 98 11/29/16 11:16 Room Air 11/29/16 10:56 3.0 Intake and Output 12/02/16 12/02/16 12/03/16 15:00 23:00 07:00 Intake Total 50 ml 480 ml Balance 50 ml 480 ml Results Result Diagram: 12/03/16 0813 12/03/16 0813 Results 24 hrs Laboratory Tests Test 12/03/16 08:13 White Blood Count 23.9 #H Red Blood Count 4.13 L Hemoglobin 11.2 L Hematocrit 34.5 L Mean Corpuscular Volume 83.5 Mean Corpuscular Hemoglobin 27.1 L Mean Corpuscular Hemoglobin Concent 32.5 Red Cell Distribution Width 13.0 Platelet Count 285 Mean Platelet Volume 10.7 H Neutrophils % 86.1 H Lymphocytes % 9.2 L Monocytes % 2.8 Eosinophils % 0.3 Basophils % 0.3 Nucleated Red Blood Cells % 0.0 Neutrophils # 20.6 H Lymphocytes # 2.2 Monocytes # 0.7 Eosinophils # 0.1 Basophils # 0.1 Nucleated Red Blood Cells # 0.0 Sodium Level 145 H Potassium Level 3.4 L Chloride Level 109 Carbon Dioxide Level 23 Anion Gap 16 Blood Urea Nitrogen 9 Creatinine 0.71 Glucose Level 87 # Calcium Level 9.1 ASHA BARAJAS MD Dec 03, 2016 23:11
== END 2016-12-03 14:18 | disposition home or self-care (01) | DRG 872 ==
LOC: E/R 16:06 → MS1 21:04
PROVIDERS: ADMIT Internal Medicine; ATTEND Internal Medicine
PROC: 0DB68ZX Excision of Stomach, Via Natural or Artificial Opening Endoscopic, Diagnostic (ICD-10-PCS; principal; 2016-11-29 12:00)
DX: A41.9 Sepsis, unspecified organism (principal); C50.911 Malignant neoplasm of unspecified site of right female breast; N39.0 Urinary tract infection, site not specified; D64.9 Anemia, unspecified; K31.7 Polyp of stomach and duodenum; K21.0 Gastro-esophageal reflux disease with esophagitis; R06.02 Shortness of breath
CPT/HCPCS: 71275; 74177; 74181; 80048; 80053; 81001; 82150; 83690; 84484; 84703; 85025; 85610; 85730; 86704; 86709; 86803; 87040; 87086; 87340; 88305; 88312; 93005; 93306; 96374; 96375; 96376; J0696; J1170; J1650; J2250; J2405; J3010; J7030; Q9967

== ENCOUNTER 2017-04-30 16:27 | Observation (INO) | END 2017-05-01 19:55 | disposition home or self-care (01) ==

== ENCOUNTER 2017-10-31 07:43 | Day surgery (SDC) | END 2017-10-31 11:24 | disposition home or self-care (01) ==